=== PATIENT | female | born 1970 | race Caucasian/White ===

== ENCOUNTER 2020-12-15 14:50 | Inpatient (IN) | payer OTHER, SELFPAY ==
[2020-12-15] VITALS (13 sets, daily range): BP systolic 98–117; BP diastolic 54–72; PULSE 60–76; RESP 13–24; TEMP 36.3–36.8; O2SAT 95–99; BMI 34.2
--- NOTE | 2020-12-15 15:27 | ECG_ITS ---
[facility] Test Date: 2020-12-15 Pat Name: Malini Gomez Department: Room: Gender: Female Wire Roller: : 1970 Requested By: Nemesio Riojas Order Number: [id number] Donald MD: Rafaela Carnes M.D. Measurements Intervals [place] Rate: 72 P: 55 [place]: 156 QRS: 18 QRSD: 83 T: -17 QT: 373 QTc: 408 Interpretive Statements SINUS RHYTHM NONSPECIFIC T-WAVE ABNORMALITY No previous ECG available for comparison Electronically Signed On 12-15-2020 21:34:52 CDT by Rafaela Carnes M.D. [id number]
--- NOTE | 2020-12-15 15:27 | XR_ITS ---
WS: [id number] PORTABLE CHEST HISTORY: chest pain COMPARISON: None available. Lungs are clear and well expanded. No pleural effusion or pneumothorax. Cardiac size: Normal. Mediastinum/Aorta: Normal mediastinum. No osseous abnormality seen. XR/XR chest 1V portable [id number] IMPRESSION: Unremarkable portable chest.
[2020-12-15 15:41] LABS: Basophils % 0.3 %; Eosinophils # 0.1 10^3/uL (0.0-0.8); Eosinophils % 3.9 %; Hematocrit 35.8 % (37.0-47.0); Hemoglobin 11.2 g/dL (11.5-15.3); Lymphocytes % 27.9 %; Mean Corpuscular HGB Conc 31.3 g/dL (30.0-36.0); Mean Corpuscular Hemoglobin 25.1 pg (28.0-34.0); Mean Corpuscular Volume 80.3 fl (81-99); Mean Platelet Volume 12.5 fL (7.4-10.4); Monocytes # 0.3 10^3/uL (0.2-0.9); Monocytes % 7.6 %; Neutrophils # 2.14 10^3/uL (1.8-7.7); Neutrophils % 60.3 %; Nucleated Red Blood Cells % 0 %; Platelet Count 282 10^3/cmm (130-400); Red Blood Count 4.46 10^6/uL (4.1-5.3); Red Cell Distribution Width 17.3 % (12.1-15.1); White Blood Count 3.6 10^3/uL (4.0-10.0)
--- NOTE | 2020-12-15 15:52 | W.ED.CHESTPA ---
HPI - Chest Pain General: Chief Complaint: Chest Pain Stated Complaint: CHEST PAIN Time Seen by Provider: 12/15/20 15:25 History of Present Illness: HPI narrative: 50-year-old female presents emergency room with complaints of chest pain radiating to left and right arm with mild shortness of breath spinning coming and going throughout the day. Patient has no known history of coronary artery disease but does have a history of hyperlipidemia hypertension hypothyroidism. She also has a history of reflux. She has not noticed any thing that exacerbates or relieves her symptoms. MD complaint: chest pain Onset (ago): hour(s) Timing of current episode: episodic Prior episodes: Yes Onset: during rest Pain location: left chest Pain radiation: right arm and left arm Severity: mild Quality: tightness and aching Relieving factors: nothing Exacerbating factors: nothing Associated symptoms: Reports diaphoresis and dyspnea; Deny abdominal pain, fever(s), leg edema, nausea, palpitations, sense of impending doom, syncope or vomiting Treatment prior to arrival: aspirin Review of Systems Const: Reports: diaphoresis; Denies: fever(s) ENMT: Denies: throat pain, ear or mastoid pain, nasal discharge or nasal congestion Card: Denies: palpitations or syncope Resp: Reports: dyspnea GI: Denies: abdominal pain, nausea or vomiting : Denies: flank pain, difficulty voiding, dysuria, urinary frequency or urinary urgency Skin/Breast: Denies: rash or pruritus PFSH ED PFSH: Medical History (Updated 12/20/20 @ 10:22 by Nemesio Tobar DO) Chest pain H/O esophageal spasm Lupus (systemic lupus erythematosus) NSTEMI (non-ST elevated myocardial infarction) Smoker Tachycardia Troponin level elevated Vasculitis Social History (Updated 12/16/20 @ 04:38 by Lindsay Hodge MD) Smoking and tobacco status: current every day smoker Female Reproductive History: Date of last menstrual period: 12/12/20 Physical Exam Const: COMMON NORMALS: no acute distress GENERAL APPEARANCE: cooperative and comfortable ORIENTATION/CONSCIOUSNESS: Yes awake, Yes oriented to person, Yes oriented to place and Yes oriented to time Neck/C-Spine: COMMON NORMALS: no JVD Resp: COMMON NORMALS: normal respiratory effort, No retractions, No use of accessory muscles and clear to auscultation bilaterally AUSCULTATION: clear to auscultation bilaterally Cardio: COMMON NORMALS: no JVD, regular rate, regular rhythm and No murmurs present (Cardio) RATE: regular rate RHYTHM: regular rhythm GI: COMMON NORMALS: Soft to palpation and No hepatosplenomegaly present AUSCULTATION: Yes normoactive bowel sounds PALPATION: Yes Soft to palpation, No Tenderness to palpation present (GI), No Guarding due to palpation present (GI) and Yes No hepatosplenomegaly present Extremity: COMMON NORMALS: normal to inspection, capillary refill normal, no clubbing, cyanosis or edema, no calf tenderness and no pedal edema Neuro: SENSORIUM/ORIENTATION: Yes oriented to person, Yes oriented to place and Yes oriented to time Skin: COMMON NORMALS: no rashes or lesions noted GENERAL SKIN EXAM: no rashes or lesions noted Course Vital Signs: Vital signs: Vital Signs Temperature 97.8 F 12/19/20 11:29 Pulse Rate 64 12/19/20 16:00 Respiratory Rate 19 H 12/19/20 16:00 Blood Pressure 110/72 12/19/20 16:00 Pulse Oximetry 90 12/19/20 15:58 MDM - Chest Pain MDM Narrative: Medical decision making narrative: No acute ST changes noted on EKG EKGs labs and imaging reviewed. There is a significant jump in her troponin. We will go ahead and admit her discussed with hospitalist and with construction management instructor orders are written. Lab Data: Labs: Lab Results 12/15/20 12/15/20 12/15/20 14:41 14:41 14:41 WBC 3.6 10^3/uL L 10^ 3/uL (4.0-10.0) RBC 4.46 10^6/uL 10^6 /uL (4.1-5.3) Hgb 11.2 g/dL L g/dL (11.5-15.3) Hct 35.8 % L % (37.0-47.0) MCV 80.3 fl L fl (81-99) MCH 25.1 pg L pg (28.0-34.0) MCHC 31.3 g/dL g/dL (30.0-36.0) RDW 17.3 % H % (12.1-15.1) Plt Count 282 10^3/cmm 10^3 /cmm (130-400) MPV 12.5 fL H fL (7.4-10.4) Neut % (Auto) 60.3 % % Lymph % (Auto) 27.9 % % [place] % (Auto) 7.6 % % Eos % (Auto) 3.9 % % Baso % (Auto) 0.3 % % Neut # (Auto) 2.14 10^3/uL 10^3 /uL (1.8-7.7) Lymph # (Auto) 1.0 10^3/uL 10^3/ uL (0.8-4.8) [place] # (Auto) 0.3 10^3/uL 10^3/ uL (0.2-0.9) Eos # (Auto) 0.1 10^3/uL 10^3/ uL (0.0-0.8) Baso # (Auto) 0.0 10^3/uL 10^3/ uL (0.0-0.1) Nucleated RBC % (a uto) 0 % % Nucleated RBCs # 0.0 /100WBC /100W BC Sodium 139 mmol/L mmol/L (136-145) Potassium 4.1 mmol/L mmol/L (3.5-5.1) Chloride 105 mmol/L mmol/L (98-107) Carbon Dioxide 25 mmol/L mmol/L (22-29) Anion Gap 13.1 (5-19) BUN 8 mg/dL mg/dL (6-20) Creatinine 0.6 mg/dL mg/dL (0.5-0.9) GFR Calculation 105.4 mL/min mL/m in (90-130) Glucose 85 mg/dL mg/dL (65-115) Calculated Osmolal ity 286 mOsm/kg mOsm/ kg (285-295) Calcium 8.8 mg/dL mg/dL (8.5-10.5) Total Bilirubin 0.3 mg/dL mg/dL (0.15-1.2) AST 11 U/L U/L (0-32) ALT 6 U/L U/L (0-33) Alkaline Phosphata se 72 IU/L IU/L (35-105) Troponin T Baselin e 17 ng/L H ng/L (0-10) Troponin T 120 Min ernst Delta Troponin T Total Protein 7.6 g/dL g/dL (6.6-8.7) Albumin 3.8 g/dL g/dL (3.5-5.2) Globulin 3.8 g/dL g/dL (1.3-4.6) HCG, Qual 12/15/20 12/15/20 17:15 18:35 WBC RBC Hgb Hct MCV MCH MCHC RDW Plt Count MPV Neut % (Auto) Lymph % (Auto) [place] % (Auto) Eos % (Auto) Baso % (Auto) Neut # (Auto) Lymph # (Auto) [place] # (Auto) Eos # (Auto) Baso # (Auto) Nucleated RBC % (a uto) Nucleated RBCs # Sodium Potassium Chloride Carbon Dioxide Anion Gap BUN Creatinine GFR Calculation Glucose Calculated Osmolal ity Calcium Total Bilirubin AST ALT Alkaline Phosphata se Troponin T Baselin e Troponin T 120 Min ernst 62.59 ng/L H ng/L (0-10) Delta Troponin T 45.59 ABS# H* ABS # (0-10) Total Protein Albumin Globulin HCG, Qual Negative (Negative) Discharge Plan Discharge Patient Disposition: Admitted As Inpatient Admit Provider: Luz Pedraza Clinical Impression: Acute non-ST elevation myocardial infarction (NSTEMI), Lupus Condition: Stable Discharge Diet: Cardiac Discharge Activity: Limit activity as instructed and Return to work/school after cleared by PCP/Specialist Coding Level of Care Code ED Assistant Front Office Manager for [facility] Fwd Exam Detailed
[2020-12-15 16:03] LABS: Troponin(5th) Baseline 17 ng/L (0-10)
[2020-12-15 16:04] LABS: Alanine Aminotransferase 6 U/L (0-33); Albumin Level 3.8 g/dL (3.5-5.2); Alkaline Phosphatase 72 IU/L (35-105); Anion Gap 13.1 (5-19); Aspartate Amino Transferase 11 U/L (0-32); Blood Urea Nitrogen 8 mg/dL (6-20); Calcium 8.8 mg/dL (8.5-10.5); Carbon Dioxide 25 mmol/L (22-29); Chloride 105 mmol/L (98-107); Globulin 3.8 g/dL (1.3-4.6); Glomerular Filtration Rate 105.4 mL/min (90-130); Glucose 85 mg/dL (65-115); Osmolality Calculated 286 mOsm/kg (285-295); Potassium 4.1 mmol/L (3.5-5.1); Sodium 139 mmol/L (136-145); Total Bilirubin 0.3 mg/dL (0.15-1.2); Total Protein 7.6 g/dL (6.6-8.7)
--- NOTE | 2020-12-15 17:27 | ECG_ITS ---
[facility] Test Date: 2020-12-15 Pat Name: Malini Gomez Department: Room: Gender: Female Sales Account Director: : 1970 Requested By: Nemesio Riojas Order Number: [id number] Donald MD: Rafaela Carnes M.D. Measurements Intervals [place] Rate: 52 P: 51 [place]: 138 QRS: 17 QRSD: 88 T: -7 QT: 408 QTc: 383 Interpretive Statements SINUS BRADYCARDIA NONSPECIFIC T-WAVE ABNORMALITY Compared to ECG 12/15/2020 15:08:59 Sinus rhythm no longer present T-wave abnormality still present Electronically Signed On 12-15-2020 21:53:19 CDT by Rafaela Carnes M.D. [id number]
[2020-12-15 18:05] LABS: Troponin 5 2HR 62.59 ng/L (0-10)
[2020-12-15 18:06] LABS: Troponin 5 2HR Delta 45.59 ABS# (0-10)
--- NOTE | 2020-12-15 18:37 | P.CONIM_ITS ---
Providers/Reason For Consult Consulting Physician/Specialty*: Dr. Harltey, Cardiology Reason for Consult*: NSTEMI Requesting Physician: Dr. Tobar Attending Physician: Dr. Pedraza History of Present Illness History of Present Illness Malini Gomez is a 50 year old female with PMHx of lupus for last 19 years, h/o vasculitis, esophageal spasms, h/o tachycardia on propranolol. She is not on any medications for lupus and states she does not like to take medications. She has not been feeling well for last week or so. 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 She complains of retrosternal chest pain described as yeni horse spreading to entire chest with radiation to both arms. She also complains of associated diaphoresis and SOB that is somewhat new when compared to previous episodes of esophageal spasms. Chest pain lasting 10-15 minutes and waking her up at times at night. She is a poor historian. She gives family h/o Sjogren's syndrome in aunt, Good Pasture's disease in mother and rheumatoid arthritis in sister. She started smoking again 6 months back after quitting for 16 years. She denies any fever, chills, cough, dyspnea, leg swelling, orthopnea or PND. No prior echo or stress test. She was tested for COVID-19 last week that was negative. She has not been vaccinated but did get COVID-19 infection last year. She gets petechial lesions in bilateral lower extremities, her buttocks all the way up to her lower back and tends to use compression stockings to help with that. Review of Systems General: Reports: 10 or more systems reviewed and unremarkable except in HPI and below Const: Reports: diaphoresis; Denies: fever(s) ENMT: Denies: throat pain, nasal discharge or nasal congestion Card: Denies: palpitations or syncope Resp: Reports: dyspnea GI: Denies: abdominal pain, nausea, vomiting or hematochezia : Denies: flank pain, difficulty voiding, dysuria, urinary frequency, urinary urgency or hematuria Skin/Breast: Reports: other (intermittent hives); Denies: rash or pruritus Neuro: Denies: dizziness or vertigo Psych: Reports: anxiety Meds/Allergies Home Medications and Allergies Home Medications Medication Instructions Recorded Confirmed Last Taken Type propranolol 10 mg PO DAILY PRN 12/15/20 12/15/20 Unknown History Allergies Allergy/AdvReac Type Severity Reaction Status Date / Time No Known Allergies Allergy Verified 12/15/20 15:00 PFSH Acute PFSH: Medical History (Updated 12/16/20 @ 11:14 by Colin Rosas MD) H/O esophageal spasm Lupus (systemic lupus erythematosus) NSTEMI (non-ST elevated myocardial infarction) Smoker Tachycardia Vasculitis Social History (Updated 12/16/20 @ 04:38 by Lindsay Hodge MD) Smoking and tobacco status: current every day smoker Female Reproductive History: Date of last menstrual period: 12/12/20 Vitals/I&O/Wt Last Vital Signs Temp 98.2 F 12/15/20 14:52 Pulse 62 12/15/20 18:32 Resp 19 H 12/15/20 18:32 BP 117/71 12/15/20 18:32 Pulse Ox 99 12/15/20 18:32 Weight last 48 hrs Weight 225 lb Physical Exam Narrative: EXAM NARRATIVE: GENERAL: Obese woman sitting in bed in no acute distress HEENT:Pupils equal round reactive to light. No pallor or icterus. NECK: No JVD. No carotid bruit. CARDIOVASCULAR SYSTEM: S1-S2 regular. No murmur rubs or gallops. RESPIRATORY SYSTEM: Chest clear to auscultation. No wheezes rhonchi or rubs heard. No use of accessory muscles. ABDOMEN: Soft, nontender and nondistended. Normal bowel sounds present. EXTREMITIES: No cyanosis or clubbing. No edema. Bilateral lower extremity petechial lesion present (chronic) SYSTEMS PROJECT MANAGER: Patient is alert oriented ?3. No focal neurological deficits. SKIN: Normal turgor and temperature. PSYCH: Normal insight and judgment. A&P Assessment and plan (1) NSTEMI (non-ST elevated myocardial infarction): EKG showing T wave inversion in inferior leads and T wave flattening in lateral leads. -remains CP free at the moment. - Troponin T increased from 17 to 65. -received ASA, plavix 300 mg and lovenox 100 mg x 1 -plan for echo. -Risks and benefits were discussed with the patients. Possible complications were reviewed with the patient as well. Plan is to proceed for the procedure at the earliest. Case was discussed with DR. Ashby. Status: Acute (2) Lupus (systemic lupus erythematosus): Status: Acute (3) Vasculitis: Status: Acute (4) Smoker: Status: Acute Additional A&P Information Microcytic anemia H/O tachycardia : On propranolol at home Thank you for allowing me to participate in patient's care. Please feel free to call with questions or concerns. Consult Attestations Medical Necessity Statement: Needs hospital stay for NSTEMI Time Spent in Patient Care: Greater than 35 minutes Coding Level of Care Code Acute Turn Machine Operator for [facility] Fwd Diagnoses NSTEMI (non-ST elevated myocardial infarction) I21.4 Lupus (systemic lupus erythematosus) M32.9 Vasculitis I77.6 Smoker F17.200
[2020-12-15] MEDS: clopidogrel 300 mg Tablet PO (18:41)
[2020-12-15] MEDS: enoxaparin 100 mg/mL Syringe SUBCUT (18:41)
[2020-12-15 20:22] LABS: HCG Qualitative Urine. Negative (Negative)
[2020-12-15] MEDS: sodium chloride 0.9% 1,000 ML 50 ML IV (21:00)
[2020-12-15 21:14] LABS: Troponin 5 6HR 56.41 ng/L (0-10)
--- NOTE | 2020-12-15 21:27 | ECG_ITS ---
[facility] Test Date: 2020-12-15 Pat Name: Malini Gomez Department: Room: 106 Gender: Female Purse Maker: : 1970 Requested By: Nemesio Riojas Order Number: [id number] Donald MD: Denise Hartley M.D. Measurements Intervals [place] Rate: 60 P: 58 [place]: 163 QRS: 25 QRSD: 93 T: 63 QT: 384 QTc: 384 Interpretive Statements SINUS RHYTHM WITH SINUS ARRHYTHMIA NONSPECIFIC T-WAVE ABNORMALITY Compared to ECG 12/15/2020 17:48:08 Sinus bradycardia no longer present T-wave abnormality still present Electronically Signed On 12-17-2020 7:07:25 CDT by Denise Hartley M.D. [id number]
[2020-12-15 21:28] LABS: SARS Covid-2 Antigen Negative (Negative)
[2020-12-15 21:34] LABS: Troponin 5 6HR Delta 39.41 ng/L (0-12)
--- NOTE | 2020-12-15 23:23 | PM.HP ---
Providers/Chief Complaint Admitting Physician: Luz Pedraza MD Chief Complaint: CHEST PAIN History of Present Illness Malini Gomez is a 50 year old female With past medical history significant for lupus, tobacco abuse was presented to the hospital with substernal chest pain. Patient stated that she had a history of esophageal spasms however this time she became profoundly diaphoretic. Noted have mild shortness of breath. No fever, chills, nausea vomiting.Laboratory workup showed a WBC of 3.6, hemoglobin of 11.2, hematocrit 35.8 and platelet count of 282. Sodium 139, potassium 4.1, chloride 105, bicarb 25, BUN 8 and creatinine of 0.6. Initial delta troponin T of 45? in repeat of 39 at 6hr. Rapid COVID 19 ag negative. Chest X-ray was unremarkable Cardiology was consulted. Patient was given aspirin, Plavix and full-dose Lovenox in emergency room. She had refused statin. Review of Systems General: Reports: 10 or more systems reviewed and unremarkable except in HPI and below Medications/Allergies Home Medications Medication Instructions Recorded Confirmed Last Taken Type propranolol 10 mg PO DAILY PRN 12/15/20 12/15/20 Unknown History Allergies Allergy/AdvReac Type Severity Reaction Status Date / Time No Known Allergies Allergy Verified 12/15/20 15:00 PFSH Acute PFSH: Medical History (Updated 12/15/20 @ 19:59 by Denise Hartley MD) H/O esophageal spasm Lupus (systemic lupus erythematosus) NSTEMI (non-ST elevated myocardial infarction) Smoker Tachycardia Vasculitis Social History (Updated 12/16/20 @ 04:38 by Lindsay Hodge MD) Smoking and tobacco status: current every day smoker Female Reproductive History: Date of last menstrual period: 12/15/20 Vitals/I&O/Wt Last Vital Signs Temp 97.3 F L 12/15/20 21:37 Pulse 65 12/15/20 23:57 Resp 15 12/15/20 23:57 BP 98/56 12/15/20 23:57 Pulse Ox 97 12/15/20 23:57 Weight last 48 hrs Weight 102.058 kg Physical Exam Narrative: EXAM NARRATIVE: General -alert awake and oriented HEENT-grossly unremarkable CVS -normal sinus rhythm Chest-nonlabored respiration Extremities- mild bilateral lower extremity edema Data : 12/15/20 14:41 12/15/20 14:41 A&P Assessment and plan (1) NSTEMI (non-ST elevated myocardial infarction): Cardiology on consult Aspirin / Plavix Refused statin Check lipid panel in am ECHO NPO Plan for cardiac cath in am Further plan per cardiology Status: Acute Attestations Medical Necessity Statement*: Anticipate over 2 midnight stay in hospital. Time Spent in Patient Care: Greater than 35 minutes Coding Level of Care Code Acute Campus President for [facility] Diagnoses NSTEMI (non-ST elevated myocardial infarction) I21.4
[2020-12-16] VITALS (69 sets, daily range): BP systolic 71–122; BP diastolic 38–69; PULSE 52–90; RESP 10–29; TEMP 36.7–37.1; O2SAT 90–99
--- NOTE | 2020-12-16 03:17 | ECG_ITS ---
[facility] Test Date: 2020-12-16 Pat Name: Malini Gomez Department: Room: 106 Gender: Female Packing Attendant: : 1970 Requested By: Lindsay Hodge Order Number: [id number] Bennett MD: Denise Hartley M.D. Measurements Intervals [place] Rate: 57 P: 55 [place]: 151 QRS: 10 QRSD: 93 T: -32 QT: 424 QTc: 414 Interpretive Statements SINUS BRADYCARDIA NONSPECIFIC T-WAVE ABNORMALITY Compared to ECG 12/15/2020 22:38:46 Sinus rhythm no longer present Sinus arrhythmia no longer present T-wave abnormality still present Electronically Signed On 12-17-2020 7:03:29 CDT by Denise Hartley M.D. [id number]
--- NOTE | 2020-12-16 03:45 | PC.NURSE ---
patient had spell of chest pain, EKG obtained and Dr. Hartley notified of event, CP resolved and patient remians stable VS WNL.
[2020-12-16 05:14] LABS: Basophils % 0.3 %; Eosinophils # 0.1 10^3/uL (0.0-0.8); Eosinophils % 3.7 %; Hemoglobin 10.2 g/dL (11.5-15.3); Lymphocytes % 25.9 %; Mean Corpuscular HGB Conc 30.9 g/dL (30.0-36.0); Mean Corpuscular Hemoglobin 25.4 pg (28.0-34.0); Mean Corpuscular Volume 82.1 fl (81-99); Mean Platelet Volume 11.7 fL (7.4-10.4); Monocytes # 0.2 10^3/uL (0.2-0.9); Monocytes % 6.3 %; Neutrophils # 2.41 10^3/uL (1.8-7.7); Neutrophils % 63.5 %; Nucleated Red Blood Cells % 0 %; Platelet Count 231 10^3/cmm (130-400); Red Blood Count 4.02 10^6/uL (4.1-5.3); Red Cell Distribution Width 17.3 % (12.1-15.1); White Blood Count 3.8 10^3/uL (4.0-10.0)
[2020-12-16 05:38] LABS: Anion Gap 13.8 (5-19); Blood Urea Nitrogen 8 mg/dL (6-20); Calcium 8.3 mg/dL (8.5-10.5); Carbon Dioxide 23 mmol/L (22-29); Chloride 106 mmol/L (98-107); Glomerular Filtration Rate 88.2 mL/min (90-130); Glucose 77 mg/dL (65-115); Osmolality Calculated 285 mOsm/kg (285-295); Potassium 3.8 mmol/L (3.5-5.1); Sodium 139 mmol/L (136-145)
[2020-12-16] MEDS: diphenhydrAMINE 50 mg Capsule PO (05:47)
--- NOTE | 2020-12-16 05:51 | PC.NURSE ---
patient to cardiac cath at this time via wc
--- NOTE | 2020-12-16 06:00 | XACV_ITS ---
Exam Room: [facility] Ht: 173 cm Wt: 102 kg BSA: 2.25 m2 Gender: Female : 1970 Any Known Allergies: No known allergies Exam Priority: Routine Indication(s): - NSTEMI Procedure(s): Procedure Description: Diagnostic procedure Procedure Description: Left Heart Catheterization Procedure Description: Left ventriculography Procedure Description: Coronary Angiography Diagnostic Cath Status: Urgent Diagnostic Findings * No disease noted in the Left Main, Left Anterior Descending, Right, or Circumflex coronary arteries. * Coronary angiography shows right dominance. Conclusions 1. No disease noted in the Left Main, Left Anterior Descending, Right, or Circumflex coronary arteries. 2. Normal left ventricular systolic function. Ejection fraction of 60%. 3. Indication for angiogram: Recurrent chest pain with ST elevations in the inferior lead relieved with nitroglycerin immediately. 4. 1-Normal left main2-Normal LAD3-Normal left circumflex4-No significant stenosis or dissection noted in the RCA however there appeared to be sluggish flow in mid RCA region. Since there was no limitation of flow and there is no obvious dissection we thought to treat it medically and also because of the fact IVUS is not available to us at this point due to technical reasons, we may will bring patient and repeat IVUS in case she continues to have symptoms despite of optimization of medicine 5. . Recommendations * Continue current medical management and risk factor modification. Diagnostic RX Recommendation: medical therapy and/or counseling Ventriculography Ejection Fraction: 60.0 % Pressures Phase:Rest AO : 107 / 69 ( 86 ) @ 6:03:00 AM 107 / 58 ( 85 ) @ 6:03:00 AM LV : 106 @ 6:02:00 AM 114 / -4 / 19 @ 6:03:00 AM 121 / -6 / 18 @ 6:03:00 AM Valves Phase:DefaultPhase AV : 14.0 @ 2:33:00 PM AV Mean Gradient: 7.0 @ 2:33:00 PM Clinical Evaluation EBL: 5mL-10mL Procedural Details Procedure Consent Obtained. Admit Source: In Patient. Current Diagnosis : NSTEMI. Pre-Procedure Time Out. Identified patient by full name and date of as verbalized by the patient/guarantor. Does the consent match the physician's order: Yes. Accurate & Complete Informed Consent: Yes. Inpatient/Outpatient History & Physical on Chart: Yes. If H&P is completed, is and addenduem needed: No; If yes, is the addendum complete: N/A. Visualize and Verify Site with Patient/Guarantor: N/A. Relevant Radiology Images available: Yes. Pre-op teaching completed and patient verbalized understanding. The risks, benefits, and alternatives of sedation and/or procedure were discussed by physician. The patient agrees to continue. Procedure started. [facility] Clinical Fraility Score: 3: Managing Well. Area Loss Prevention Manager Indications: ACS > 24 hours. Chest Pain Symptom Assessment: Typical Angina Symptoms. Correct patient, site and procedure confirmed by cath team. Current diagnosis: NSTEMI. PERRLA. Strong, equal hand plasterer tender bilaterally. Lungs clear x 5 lobes. IV Site on Arrival: 18 gauge in the left anticubital. IV Fluids: 0.9% NaCl at KVO. 500 mL infused prior to pharmacy laboratory technician. Pre Procedural Pulses: right radial was 3+. Pre Procedural Pulses: bilateral posterior tibial was Doppled. Pre Procedural Pulses: bilateral dorsalis pedis was Doppled. Oxygen started at 3liters/min via nasal canula. right radial was prepped with chloroprep then draped in the usual sterile fashion. Physician notified. Baseline sample Acquired. HR: 63 BPM. Patient's family unavailable. Equipment: 5F - Radial. Cardiac Cath Pack. ACIST Manifold Kit Model BT 2000. Heparinized Saline (2 units/mL), 1000 mL bag. Equipment: 5F - Femoral. Physician arrived. Physician scrubbed in. Immediate Pre-Procedure Time Out. Correct Patient: Yes; Correct Procedure: Yes; Correct Site: Yes; Correct Patient Position: Yes; Correct Supplies: Yes; Dried Flammable Prep: Yes; Blood Products Available: N/A;. Lidocaine 1% infiltrated to the right radial. Arterial access obtained. A 5 kuwaiti TIG catheter in over exchange wire. Catheter seated in the LCS. Multiple views taken of left coronary artery. Catheter redirected to the RCA. Multiple views taken of right coronary artery. Catheter removed over the exchange wire. A CRD 5F 145 Angled Pig Diagnostic Catheter was advanced over the wire and used for Ventriculography. EDP Sample taken: LV 106/7,15; HR: 79 BPM; SpO2: 100%. LV gram performed in GUTIERREZ @ 10 mL/second for a total of 30 mL. EDP Sample taken: LV 114/-5,19; HR: 59 BPM; SpO2: 100%. Pullback taken: LV 121/-7,18; AO 107/69(86); Mean: 7mmHg, Peak to Peak: 14mmHg, SEP: 20sec/min; HR: 75 BPM; SpO2: 99%. Catheter removed over the exchange wire. Physician review of films. Physician scrubbed out. A TR Band was successful obtaining hemostatsis at the Right Radial artery insertion site. TR band placed. Hemostasis obtained. Post Procedure: Pulses reassessed and unchanged. PERRLA. Strong, equal hand plasterer tender bilaterally. No VTE prophylaxis required. Medication's Wasted: Lidocaine 1% = 18 ml. Total IV fluids: 37 mL. Medication's Wasted: Heparin = 1000 units. Medication's Wasted: Nitro = 49.8 mg. Medication's Wasted: Fentanyl = 50 mcg. Fluoro: 4:05. Contrast type used: Omnipaque 300 mg/mL, 150 mL bottle. [id number]. Post-op diagnosis: Normal Coronaries; Endothelial dysfunction. Complications: None. Estimated blood loss: 5mL-10mL. Procedure completed. Patient transferred by wheelchair to 1st floor. Vital chart was stopped. Access Site Site: Right Radial artery Sheath Size: 5 Fr Hemostasis Method: TR Band Hemostasis Success: Successful Procedure Medications Start: 6:41 AM Stop: 6:41 AM Medication: Versed 1 mg and Fentanyl 25 mcg Amount: 1 Route: I.V. Start: 6:46 AM Stop: 6:46 AM Medication: Versed 1 mg and Fentanyl 25 mcg Amount: 1 Route: I.V. Start: 6:48 AM Stop: 6:48 AM Medication: Nitrogylcerin Amount: 200 mcg Route: I.A. Start: 6:50 AM Stop: 6:50 AM Medication: Heparin Amount: 5000 units Route: I.V. I, the attending physician, have reviewed and verified all procedure medications. Yes, all medications given per verbal order History/Risk Factors Hypertension: No Dyslipidemia: No Peripheral Arterial Disease (PAD): No Myocardial Infarction (SD): No Obesity: Yes Renal Disease: No Tobacco Use: Current/Recent(w/in 1 year) Prior Interventions PCI: No CABG: No Valve Surgery: No Report Signatures Finalized by Smitha Ashby MD on 01/01/2021 04:54 PM
--- NOTE | 2020-12-16 06:31 | W.PM.OPSUD ---
Surgery/Procedure H&P Update DATE OF PROCEDURE: December 16, 2020 DATE H&P PERFORMED: 12/15/20 H&P UPDATE INFORMATION: I have reviewed H&P completed within last 30 days, I have examined patient prior to procedure and No changes to prior documentation PREOP DIAGNOSIS: Acute coronary syndrome PATIENT REASSESSED PRIOR TO SEDATION, WITH NO CHANGE NOTED: Yes PHYSICAL EXAM: alert, oriented x 3, clear to auscultation bilaterally and regular rate & rhythm AIRWAY EVAL/ANESTHESIA PLAN: ASA II, Risks, benefits & alternatives of sedation and/or procedure discussed and Patient agrees to continue as planned ADDITIONAL INFORMATION: Patient has been explained in detail all risk benefit and alternative for the procedure. She understand the risk for stroke major minor bleed transfusion contrast-induced nephropathy urgent emergent bypass surgery vascular injury infection hematoma . She is a candidate for DAPT. She would like to proceed with it.
--- NOTE | 2020-12-16 07:51 | PC.NURSE ---
Pt arrived from [facility] at approximately 0720. Pt has TR Band to right wrist. Radial pulses palpable and full. No hematoma, swelling, or bleeding noted. Pt had no c/o pain or discomfort at the present time. Call light in reach. Will continue to monitor.
[2020-12-16] MEDS: aspirin 81 mg Chew Tablet PO (08:42)
[2020-12-16] MEDS: clopidogrel 75 mg Tablet PO (08:42)
[2020-12-16] MEDS: pantoprazole DR 40 mg Tablet PO (08:42)
[2020-12-16 10:52] LABS: C Reactive Protein 5.4 mg/L (0.0-4.9)
--- NOTE | 2020-12-16 11:00 | P.PN_ITS ---
Subjective Subjective: Interval history: She states that she is doing better than she was. Discussed results of the coronary angiogram with the brim greaser operator. Had a brief episode of chest discomfort again which she describes fortunato to a charley horse but in her chest squeezing tightly, episode was brief, and there was no time for her to get nitroglycerin before it resolved spontaneously. Report is that her T waves were noted to be inverted on telemetry by RN during the episode. Heart rates have been on the slow side 50s-60s. States this has been having at home as well, although sometimes heart rates would be going down into the 30s-40s. States she has been cautious with her propranolol. She has had to take Aleve at times, but is aware that it may worsen her GERD. Reports that at night waking up from the pain she feels that sitting up and leaning forward helps her symptoms. 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 She states that she had seen a warehouse analyst 19 years ago for lupus and was transiently taking Plaquenil, however, after some improvement he was okay with her stopping the medication. She did not follow-up with him as she felt he was not attentive enough and has not seen another warehouse analyst since then. She states she also has been having recurrent problems with esophageal spasm in the past which is what her symptoms were diagnosed as for which she has been taking GI cocktail with viscous lidocaine, although states her primary provider has declined to further prescribe this for her. She is looking to try to set up care with Dr. Craven or possibly gastroenterology specialist. Her daughter states she has been going through menopause recently as well. Discussed with her again regarding results of coronary angiography, as well as work-up so far. Discussed concerns for possibility of additionally she will do of chest pain including possible vasospasm, with lupus, troponin elevation, pos sibility of pericarditis or myopericarditis, also in the presence of vasculitis, as well recently due to stress there had been concern also of possible Takotsubo cardiomyopathy. Echocardiogram had been requested and she awaits to have the study done. Discussed with her she would benefit from follow-up with rheumatology. Vitals/I&O/Wt Last Vital Signs Temp 98.1 F 12/16/20 07:57 Pulse 61 12/16/20 07:57 Resp 18 12/16/20 07:57 BP 98/54 12/16/20 07:57 Pulse Ox 99 12/16/20 07:30 12/15/20 12/16/20 12/16/20 22:59 06:59 14:59 Intake Total 0 / 0 Balance 0 / 0 Weight last 48 hrs Weight 105.772 kg Weight 102.058 kg Physical Exam Narrative: EXAM NARRATIVE: Accompanied by daughter Const: COMMON NORMALS: no acute distress and patient oriented x3 HENMT: COMMON NORMALS: oropharynx normal Neck/C-Spine: COMMON NORMALS: no JVD Resp: COMMON NORMALS: normal respiratory effort and clear to auscultation bilaterally AUSCULTATION: clear to auscultation bilaterally Cardio: COMMON NORMALS: no JVD, regular rhythm, S1 normal heart sound present, S2 normal heart sound present and No murmurs present (Cardio) RATE: bradycardic RHYTHM: regular rhythm HEART SOUNDS: S1 normal heart sound present and S2 normal heart sound present GI: COMMON NORMALS: Normal to inspection, nondistended, normoactive bowel sounds present, Soft to palpation and non-tender PALPATION: Yes Soft to palpation Extremity: COMMON NORMALS: no joint enlargement and no pedal edema Neuro: COMMON NORMALS: patient oriented x3 and moves all extremities Skin: GENERAL SKIN EXAM: petechiae (Scattered petechial lesions of lower extremities including upper thighs) Data : 12/16/20 04:18 12/16/20 04:18 A&P Assessment and plan (1) Chest pain: Short episode again this morning, not long enough to get to nitroglycerin and time, resolve spontaneously. Reported per RN who had seen T wave inversions during episode. She does report episodes waking her up at night, and does feel sitting up and forward was helping with symptoms. Possibly some endothelial dysfunction noted on coronary angiography, although no hemodynamically significant occlusions noted. Discussed with her possibility of other children's including vasospasm, consideration also given to Takotsubo cardiomyopathy, and discussed with her in the setting of lupus/chronic vasculitis/petechia of lower extremities additional investigation is pending with consideration of possibility of pericarditis, myopericarditis, although EKG not suggestive of pericarditis changes. Lupus vasculitis is a consideration. Denies any recent flulike illness. Has been having some chills with the chest discomfort episodes. TTE has been ordered. Pending. Will request also CRP, ESR, complement levels. Would like her to follow-up with rheumatology. Appreciate cardiology assessment and recommendations. Continue telemetry monitoring. Status: Acute (2) Troponin level elevated: Status: Acute (3) Petechiae: Status: Acute (4) Lupus: Status: Acute (5) Leukopenia: Status: Acute Additional A&P Information History of recurrent esophageal spasm: Reports diagnosis of history of recurrent spherical spasm. Consider barium swallow after discharge. GERD Recent psychosocial stressors Perimenopausal symptoms Attestations Medical Necessity Statement*: Continue admission for assessment management of chest pain episodes, troponin elevation in a lady with underlying autoimmune disease. Coding Level of Care Code Acute Parking Lot Attendant for anirudh Medranod Diagnoses Chest pain R07.9 Troponin level elevated R77.8 Petechiae R23.3 Lupus M32.9 Leukopenia D72.819
[2020-12-16 11:07] LABS: Complement C3 96 mg/dL (90-180)
--- NOTE | 2020-12-16 11:12 | PC.CHAP ---
Pastoral Care Encounter/Spiritual Assessment Type of Contact [] Declined public works manager visit [] Patient/Family/Request visit [] Outpatient visit [] Follow-up visit [] Physician referral [] Code/Alert [x] Routine visit [] Staff referral [] Actively dying [] Patient sleeping [] Family support [] [] Out of room [] Palliative care [] [x] Receiving care in room [] Pre-surgical visit [] Trauma [] Long length of stay [] ICU visit [] Other: Relational/Emotional Strength [x] Patient feels connected with others/family/visitors/staff [] Distress [] Loneliness/isolation [] Abandonment Spirituality of Patient [x] Person of Monica [] Attends Confucianism of their Monica [x] Believes in Prayer [] Reads Bible or Confucianism materials [] There are Spiritual issues to be addressed Applied Research Director Interventions [x] Prayer [x] Active listening [x] Non-anxious presence [x] Spiritual/emotional support [] Crisis/trauma care [x] Spiritual counseling [] Bereavement support [] Provided bereavement packet [] Provided Bible/devotional materials [] Provided toy/stuffed animal, coloring book to patient or family member [] Provided Communion [] Anointing/[place] [] Salvation [x] Completed spiritual assessment [] Other: Impact on Illness or Injury [] Angry [] Fearful [] Anxious [] Often cries [] Exhaustion [] Unable to work [] Unable to attend yarsanism [] Unable to walk/stand [] Unable to read [] Unable to drive [] Unable to eat/drink [] Unable to sleep [] Unable to be with family [] Patient intubated [] Other: Summary feeling good and is going home today Time spent with patient 10 mins
[2020-12-16] MEDS: acetaminophen 325 mg Tablet 650 MG PO (11:23)
--- NOTE | 2020-12-16 14:00 | PC.NURSE ---
Pts TR Band removed no hematoma, swelling or bleeding noted. Pt tolerated well. Pt had no c/o pain or discomfort at the present time. No needs voiced.
[2020-12-16] MEDS: ketorolac 30 mg/mL INJ 15 MG IVP (16:46)
[2020-12-16] MEDS: sodium chloride 0.9% 1,000 ML 100 ML IV (16:48)
[2020-12-16] MEDS: alum-mag-hydroxide-sime 30 mL UDC PO (16:52)
[2020-12-16 17:28] LABS: Thyroid Stimulating Hormone 8.04 uIU/mL (0.27-4.20)
--- NOTE | 2020-12-16 18:00 | PM.PN ---
Subjective Subjective: Interval history: Patient underwent coronary angiogram this morning by Dr. Ashby with normal coronaries. I was called to evaluate the patient bedside d/t episode of chest pain. Patient has been having on and off chest pain 3-4 over 10 in intensity that was described as twitches since angiogram. Minor EKG changes more so in T wave was noted by nursing staff. While I was evaluating the patient, patient developed retrosternal chest discomfort with diaphoresis and flushed feeling. There was marked ST segment elevation with frequent PVCs. Patient had received a dose of Maalox just before this episode. Sublingual nitroglycerin was administered in patient's chest discomfort along with EKG changes resolved within a matter of minutes. Medications: Reviewed: Yes Vitals/I&O/Wt Last Vital Signs Temp 98.7 F 12/16/20 11:13 Pulse 76 12/16/20 17:00 Resp 16 12/16/20 17:00 BP 101/52 12/16/20 17:00 Pulse Ox 97 12/16/20 11:13 12/16/20 12/16/20 12/16/20 06:59 14:59 22:59 Intake Total 0 / 0 Balance 0 / 0 Weight last 48 hrs Weight 233 lb 3 oz Weight 225 lb Physical Exam Narrative: EXAM NARRATIVE: GENERAL: Obese woman sitting in bed in no acute distress HEENT:Pupils equal round reactive to light. No pallor or icterus. NECK: No JVD. No carotid bruit. CARDIOVASCULAR SYSTEM: S1-S2 regular. No murmur rubs or gallops. RESPIRATORY SYSTEM: Chest clear to auscultation. No wheezes rhonchi or rubs heard. No use of accessory muscles. ABDOMEN: Soft, nontender and nondistended. Normal bowel sounds present. EXTREMITIES: No cyanosis or clubbing. No edema. 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 No focal neurological deficits. SKIN: Normal turgor and temperature. PSYCH: Normal insight and judgment. Data : 12/16/20 04:18 12/16/20 04:18 A&P Assessment and plan (1) NSTEMI (non-ST elevated myocardial infarction): EKG showing T wave inversion in inferior leads and T wave flattening in lateral leads. -remains CP free at the moment. - Troponin T increased from 17 to 65. -received ASA, plavix 300 mg and lovenox 100 mg x 1 -f/u on echo. -Normal coronaries on C this morning. -MINOCA d/t coronary vasospasm Status: Acute (2) Vasospastic angina: Blood pressure has been soft however episode of angina was nitrate responsive. -Patient's underlying lupus and vasculitis very likely has a role to play. -Blood pressure has been soft may consider low-dose Cardizem if blood pressure improves. -In the interim, I will start her on isodril 2.5 mg twice a day. continue low dose statin -will add Ranexa well. -NTG SL PRN while in hospital and on discharge. -Patient was advised to quit smoking. D/C propranolol Status: Acute (3) Vasculitis: Status: Acute (4) Lupus (systemic lupus erythematosus): Status: Acute (5) Smoker: Status: Acute Additional A&P Information Microcytic anemia H/O tachycardia : On propranolol at home Thank you for allowing me to participate in patient's care. Please feel free to call with questions or concerns. Attestations Medical Necessity Statement*: needs hospital stay for management of MINOCA and vasospastic angina Time Spent in Patient Care: 16 - 35 minutes (>than 50% of time spent in counselling and/or direct pt care on unit). Critical Care Time: The high probability of a clinically significant, sudden or life threatening deterioration of the patient's [cardiovascular] system(s) required my full and direct attention, intervention and personal management. The critical care time is as shown. This time is in addition to time spent performing any reported procedures but includes the following: [x] Data and vital sign review and interpretation [x] Patient assessment, examination and intervention [x] Documentation [x] Medication orders and management Critical Care Time (min): 20 Coding Level of Care Code Acute Service Writer for g Fwd Diagnoses NSTEMI (non-ST elevated myocardial infarction) I21.4 Vasospastic angina I20.1 Vasculitis I77.6 Lupus (systemic lupus erythematosus) M32.9 Smoker F17.200
[2020-12-16 18:05] LABS: Cortisol Random 10.85 ug/dL (2.47-19.5)
[2020-12-16] MEDS: ranolazine (12HR) 500 mg Tablet PO (18:29)
--- NOTE | 2020-12-16 20:12 | USCV_ITS ---
Malini Gomez Age: 50 Gender: F : 1970 Exam Date: 12/16/2020 16:09 Ordering Phys: Denise Hartley MD ([email or web address]) Technologist: Christiana Banerjee Exam Location: [facility] [place] Indication: NSTEMI BP: 96 / 49 HR: 53 Rhythm: Sinus Technical Quality: Adequate MEASUREMENTS (Male / Female) Normal Values 2D ECHO LV Diastolic Diameter PLAX 5.3 cm 4.2 - 5.9 / 3.9 - 5.3 cm LV Systolic Diameter PLAX 3.9 cm IVS Diastolic Thickness 1.0 cm 0.6 - 1.0 / 0.6 - 0.9 cm IVS Systolic Thickness 1.1 cm LVPW Diastolic Thickness 1.4 cm 0.6 - 1.0 / 0.6 - 0.9 cm LVPW Systolic Thickness 1.6 cm LVOT Diameter 2.0 cm LV Ejection Fraction 2D Teich 51.4 % LV Ejection Fraction MOD 2C 51.3 % LV Ejection Fraction 2C AL 51.9 % LA Diameter 3.6 cm LA Width 3.8 cm LA Height 4.6 cm RA Width 3.0 cm RA Height 4.0 cm DOPPLER AV Peak Velocity 150.0 cm/s LVOT Peak Velocity 85.0 cm/s AV Area Cont Eq vti 1.8 cm squared AV Area Cont Eq pk 1.8 cm squared MV Peak Velocity 134.0 cm/s MV Area PHT 3.9 cm squared Mitral E to A Ratio 1.7 MV E' Velocity 51.0 cm/s Mitral E to MV E' Ratio 8.0 Mitral E to LV E' Lateral Ratio 9.3 Mitral E to LV E' Septal Ratio 7.1 TR Peak Velocity 197.5 cm/s TR Peak Gradient 15.6 mmHg Right Atrial Pressure 3.0 mmHg Pulmonary Artery Systolic Pressu 18.6 mmHg PV Peak Velocity 62.0 cm/s RV Acceleration Time 0.2 s RV Ejection Time 0.4 s RV AcT/ET 0.4 FINDINGS Left Ventricle Normal left ventricular size, systolic function and wall thickness. Left ventricular ejection fraction is estimated at 55 %. There is mild hypokinesis of septal and basal to mid inferior hunter. Normal diastolic function. Right Ventricle Normal right ventricular size and systolic function. Right ventricular systolic pressure 27 mmHg. Right Atrium Normal right atrial size. Right atrial pressure estimated at 3 mmHg. Left Atrium Normal left atrial size. Mitral Valve Structurally normal mitral valve. No mitral valve stenosis. Mild mitral valve regurgitation. Aortic Valve Aortic valve not well visualized. No aortic valve stenosis. No aortic valve regurgitation. Tricuspid Valve Structurally normal tricuspid valve. No tricuspid valve stenosis. Mild tricuspid valve regurgitation. Pulmonic Valve Pulmonic valve not well visualized. Trace pulmonary valve regurgitation. Pericardium No pericardial effusion. Aorta Normal-sized aortic root. Normal-sized inferior vena cava with normal respiratory variation. CONCLUSIONS 1. Normal left ventricular size, systolic function and wall thickness. Left ventricular ejection fraction is estimated at 55 %. There is mild hypokinesis of septal and basal to mid inferior hunter. Normal diastolic function. 2. Normal right ventricular size and systolic function. 3. Pulmonary artery pressure estimated at 27 mmHg. 4. Mild mitral and tricuspid valve regurgitation. 5. ST-T wave changes along with bradycardia noted during the study. 6. No prior studies available for comparison. Denise Hartley MD (Electronically Signed) Final Date: 16 December 2020 20:01 S
[2020-12-16] MEDS: isosorbide dinitrate 20 mg Tablet 2.5 MG PO (20:35)
[2020-12-16] MEDS: atorvastatin 40 mg Tablet 10 MG PO (20:36)
[2020-12-16 20:54] LABS: Free T4 Free Thyroxine 1.01 ng/dL (0.82-1.77)
--- NOTE | 2020-12-16 23:32 | PC.NURSE ---
Rapid Response This nurse responded to Rapid Response, Nurse informed this nurse patient had 4th run of V tach but this time had ST elevation and became symptomatic, upon entering room this nurse found patient to be a little lethargic but still AO, 20 gauge started to L hand, Dr. Hodge at bedside, gave v.o. to transfer patinet to ICU, start Heparin drip and Nitro drip at 5 mcg upon transfer, if Nitro drip not tolerated switch to PRN SL Nitro, at this time rhythm changed to base line sinus lindsey cardia. patinet in ICU at this time, daughter at bedside, Dr. Hodge approved Daughter staying in unit
[2020-12-17] VITALS (42 sets, daily range): BP systolic 81–168; BP diastolic 48–101; PULSE 45–77; RESP 12–25; TEMP 36.6–36.8; O2SAT 93–99
[2020-12-17] MEDS: nitroglycerin drip 50 MG/250 ML PREMIX IV (00:07)
[2020-12-17 00:14] LABS: Blood Urea Nitrogen 6 mg/dL (6-20); Calcium 8.1 mg/dL (8.5-10.5); Carbon Dioxide 24 mmol/L (22-29); Chloride 109 mmol/L (98-107); Creatinine Clr Calc Pharmacy 121.0532; Glomerular Filtration Rate 88.2 mL/min (90-130); Glucose 85 mg/dL (65-115); Magnesium 2.1 mg/dL (1.7-2.3); Osmolality Calculated 291 mOsm/kg (285-295); Sodium 142 mmol/L (136-145)
[2020-12-17 00:15] LABS: Troponin T (5th) Once 32 ng/L (0-10)
[2020-12-17] MEDS: acetaminophen 325 mg Tablet 650 MG PO ×2 (00:24→16:51)
[2020-12-17] MEDS: heparin drip 25,000 UNIT/500 ML PREMIX 61.35 UNIT IV ×2 (01:06→07:12)
[2020-12-17] MEDS: sodium chloride 0.9% 1,000 ML 100 ML IV ×2 (01:17→12:42)
--- NOTE | 2020-12-17 02:52 | PC.NURSE ---
This nurse noticed ST elevation on monitor, EKG showed Marked ST Elevation consider Inferior injury acute FL, Dr. Hodge contacted, while on phone, rhythm returned to sinus lindsey, no n.o. at this time, keep HCP updated
--- NOTE | 2020-12-17 05:55 | PC.NURSE ---
approximately 0530 ST elevation noted on monitor, patient reported mild chest pain, VS WNL, after 2 to 3 minutes back to sinus lindsey, per Dr. Hodge from previous notification HCP not notified since rhythm converted quickly and patient remained stable
--- NOTE | 2020-12-17 06:26 | ECG_ITS ---
[facility] Test Date: 2020-12-16 Pat Name: Malini Gomez Department: Room: ICU12 Gender: Female Ripshear Operator: : 1970 Requested By: Lindsay Hodge Order Number: [id number] Donald MD: Denise Hartley M.D. Measurements Intervals [place] Rate: 72 P: 63 MN: 149 QRS: 36 QRSD: 105 T: 72 QT: 355 QTc: 388 Interpretive Statements SINUS RHYTHM WITH SINUS ARRHYTHMIA NONSPECIFIC ST & T-WAVE ABNORMALITY Compared to ECG 12/16/2020 03:10:53 Sinus bradycardia no longer present T-wave abnormality still present Electronically Signed On 12-17-2020 7:08:31 CDT by Denise Hartley M.D. [id number]
--- NOTE | 2020-12-17 06:47 | ECG_ITS ---
[facility] Test Date: 2020-12-17 Pat Name: Malini Gomez Department: Room: ICU12 Gender: Female Clinical Engineering Manager: : 1970 Requested By: Lindsay Hodge Order Number: [id number] Bennett MD: Denise Hartley M.D. Measurements Intervals [place] Rate: 48 P: 147 HI: 128 QRS: 50 QRSD: 89 T: 145 QT: 417 QTc: 375 Interpretive Statements ECTOPIC ATRIAL BRADYCARDIA LOW QRS VOLTAGE IN EXTREMITY LEADS POSSIBLE ANTERIOR MYOCARDIAL INFARCTION , OF INDETERMINATE AGE MARKED ST ELEVATION, CONSIDER INFERIOR INJURY ACUTE [place] Compared to ECG 12/16/2020 22:48:39 Bradycardia, nonsinus now present Myocardial infarct finding now present ST (T wave) deviation now present Sinus rhythm no longer present Sinus arrhythmia no longer present T-wave abnormality no longer present Electronically Signed On 12-17-2020 6:56:03 CDT by Denise Hartley M.D. [id number]
--- NOTE | 2020-12-17 06:49 | PC.NURSE ---
Dr. Willis called and gave t.o. to increase Nitro to 7.5
[2020-12-17 07:13] LABS: Basophils % 0.3 %; Eosinophils # 0.1 10^3/uL (0.0-0.8); Eosinophils % 2.2 %; Hematocrit 29.9 % (37.0-47.0); Hemoglobin 9.4 g/dL (11.5-15.3); Lymphocytes # 0.8 10^3/uL (0.8-4.8); Lymphocytes % 22.6 %; Mean Corpuscular HGB Conc 31.4 g/dL (30.0-36.0); Mean Corpuscular Hemoglobin 25.8 pg (28.0-34.0); Mean Corpuscular Volume 82.1 fl (81-99); Mean Platelet Volume 11.6 fL (7.4-10.4); Monocytes # 0.2 10^3/uL (0.2-0.9); Monocytes % 5.9 %; Neutrophils # 2.45 10^3/uL (1.8-7.7); Neutrophils % 68.4 %; Nucleated Red Blood Cells % 0 %; Platelet Count 217 10^3/cmm (130-400); Red Blood Count 3.64 10^6/uL (4.1-5.3); Red Cell Distribution Width 17.6 % (12.1-15.1); White Blood Count 3.6 10^3/uL (4.0-10.0)
[2020-12-17 07:28] LABS: Alanine Aminotransferase 15 U/L (0-33); Alkaline Phosphatase 62 IU/L (35-105); Anion Gap 10.8 (5-19); Aspartate Amino Transferase 28 U/L (0-32); Blood Urea Nitrogen 7 mg/dL (6-20); Calcium 8.2 mg/dL (8.5-10.5); Carbon Dioxide 23 mmol/L (22-29); Chloride 111 mmol/L (98-107); Globulin 3.6 g/dL (1.3-4.6); Glomerular Filtration Rate 130.1 mL/min (90-130); Glucose 89 mg/dL (65-115); Magnesium 2.1 mg/dL (1.7-2.3); Osmolality Calculated 289 mOsm/kg (285-295); Partial Thromboplastin Time 123.6 SECONDS (23.9-36.7); Potassium 3.8 mmol/L (3.5-5.1); Sodium 141 mmol/L (136-145); Total Bilirubin 0.2 mg/dL (0.15-1.2); Total Protein 6.6 g/dL (6.6-8.7)
--- NOTE | 2020-12-17 07:52 | PM.PN ---
Subjective Subjective: Interval history: Patient had episodes with marked ST elevation in inferior leads and ST depression and T wave inversion in posterior lateral leads. This was followed by ventricular bigeminy and 3-4 beat runs of NSVT in CSU and hence she was transferred to ICU around 1130 last night. She was started on nitroglycerin drip @ 5 and heparin GTT. She had 2 other episodes while on nitroglycerin drip around 2:30 AM and 5 AM this morning. These episodes lasted 5 to 10 minutes in duration and patient was in significant distress with diaphoresis and dry heaving associated with last episode this morning. At the time of examination patient complains of feeling tired and drained and not feeling well overall. She denies having any chest pain. Heart rate ranging from mid 40s to 60s overnight. Medications: Reviewed: Yes Vitals/I&O/Wt Last Vital Signs Temp 98.7 F 12/16/20 11:13 Pulse 51 L 12/17/20 05:30 Resp 15 12/17/20 05:30 BP 138/65 12/17/20 05:00 Pulse Ox 97 12/17/20 05:30 12/16/20 12/17/20 12/17/20 22:59 06:59 14:59 Intake Total 857.536 / 857.536 10.575 / 10.575 Balance 857.536 / 857.536 10.575 / 10.575 Weight last 48 hrs Weight 230 lb Weight 233 lb 3 oz Weight 225 lb Physical Exam Narrative: EXAM NARRATIVE: GENERAL: Obese woman sitting in bed in no acute distress HEENT:Pupils equal round reactive to light. No pallor or icterus. NECK: No JVD. No carotid bruit. CARDIOVASCULAR SYSTEM: S1-S2 regular. No murmur rubs or gallops. RESPIRATORY SYSTEM: Chest clear to auscultation. No wheezes rhonchi or rubs heard. No use of accessory muscles. ABDOMEN: Soft, nontender and nondistended. Normal bowel sounds present. EXTREMITIES: No cyanosis or clubbing. No edema. 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 No focal neurological deficits. SKIN: Normal turgor and temperature. PSYCH: Normal insight and judgment. Data : 12/17/20 06:54 10/01/21 06:54 A&P Assessment and plan (1) NSTEMI (non-ST elevated myocardial infarction): EKG showing T wave inversion in inferior leads and T wave flattening in lateral leads on arrival - Troponin T increased from 17 to 65 then decreased to mid 40s. -received ASA, plavix 300 mg and lovenox 100 mg x 1 -Echo reviewed. -Normal coronaries on [facility] yesterday morning. -MINOCA d/t coronary vasospasm. Given Px RCA staining, SCAD is also a possibility. As she has had recurrent overnight episodes, after discussion with Dr. Ashby decision was made to r/o SCAD with IVUS. Status: Acute (2) Vasospastic angina: Blood pressure has been soft however episode of angina was nitrate responsive. -Patient's underlying lupus and vasculitis very likely has a role to play. -Blood pressure has been soft and bradycardia +. continue NTG gtt. -In the interim, I will start her on isodril 2.5 mg thrice a day. continue low dose statin -will add Ranexa and low dose amlodipine as well. -NTG SL PRN while in hospital and on discharge. -Patient was advised to quit smoking. D/C propranolol Status: Acute (3) Vasculitis: Status: Acute (4) Lupus (systemic lupus erythematosus): Status: Acute (5) Smoker: Counselled on smoking cessation Status: Acute Additional A&P Information Mild anemia H/O tachycardia : Was On propranolol at home Elevated TSH: Normal free T4 Bradycardia PVCs/NSVT Thank you for allowing me to participate in patient's care. Please feel free to call with questions or concerns. Attestations Medical Necessity Statement*: needs hospital stay for managment of vasospastic angina Time Spent in Patient Care: 16 - 35 minutes (>than 50% of time spent in counselling and/or direct pt care on unit). Coding Level of Care Code Acute Covering Machine Operator for [facility] Fwcarlos alberto Diagnoses NSTEMI (non-ST elevated myocardial infarction) I21.4 Vasospastic angina I20.1 Vasculitis I77.6 Lupus (systemic lupus erythematosus) M32.9 Smoker F17.200
[2020-12-17] MEDS: ranolazine (12HR) 500 mg Tablet PO ×2 (09:27→18:51)
[2020-12-17] MEDS: aspirin 81 mg EC Tablet PO (09:27)
[2020-12-17] MEDS: pantoprazole DR 40 mg Tablet PO (09:41)
[2020-12-17 10:34] LABS: Erythrocyte Sedimentation Rate 53 mm/hr (0-15)
--- NOTE | 2020-12-17 11:41 | P.PN_ITS ---
Subjective Subjective: Interval history: Has an episode of chest pain overnight, noted T wave inversions on EKG. Currently pain-free. Noting somewhat blurry vision on the right side which states had happened previously and sometimes precedes a migraine headache. Denies numbness or weakness, trouble speaking. No visual field cut off. Vitals/I&O/Wt Last Vital Signs Temp 97.9 F 12/17/20 07:30 Pulse 58 L 12/17/20 11:00 Resp 20 H 12/17/20 11:00 BP 121/66 12/17/20 11:00 Pulse Ox 98 12/17/20 11:00 12/16/20 12/17/20 12/17/20 22:59 06:59 14:59 Intake Total 857.536 / 857.536 55.565 / 55.565 Balance 857.536 / 857.536 55.565 / 55.565 Weight last 48 hrs Weight 104.326 kg Weight 105.772 kg Weight 102.058 kg Physical Exam Narrative: EXAM NARRATIVE: Daughter is in the room. Const: COMMON NORMALS: no acute distress and patient oriented x3 GENERAL APPEARANCE: anxious HENMT: COMMON NORMALS: oropharynx normal Neck/C-Spine: COMMON NORMALS: no JVD Resp: COMMON NORMALS: normal respiratory effort and clear to auscultation bilaterally AUSCULTATION: clear to auscultation bilaterally Cardio: COMMON NORMALS: no JVD, regular rhythm, S1 normal heart sound present, S2 normal heart sound present and No murmurs present (Cardio) RATE: bradycar dic RHYTHM: regular rhythm HEART SOUNDS: S1 normal heart sound present and S2 normal heart sound present GI: COMMON NORMALS: Normal to inspection, nondistended, normoactive bowel sounds present, Soft to palpation and non-tender PALPATION: Yes Soft to palpation Extremity: COMMON NORMALS: no joint enlargement and no pedal edema Neuro: COMMON NORMALS: patient oriented x3 and moves all extremities Skin: GENERAL SKIN EXAM: petechiae (Scattered petechial lesions of lower extremities including upper thighs) Data : 12/17/20 06:54 12/17/20 06:54 A&P Assessment and plan (1) Chest pain: Overnight again episode of chest pain with noted T wave inversion. Extensive discussion with cardiology and patient, with consideration of additional evaluation, to rule out concern of possibility of coronary dissection as per discussion plan is for additional evaluation by IVUS. Suspected vasospasm. Started on low-dose Isordil. Low-dose amlodipine is added as well. Monitor blood pressures closely. Discussed with her also would want her to follow-up with dermatology given underlying SLE. CRP with only mild elevation, ESR pending, complement levels normal. Appreciate cardiology assessment and recommendations. Continue telemetry monitoring. Status: Acute (2) Troponin level elevated: NSTEMI. As above. 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 Previously transiently on Plaquenil for SLE, but discontinued. 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 Discussed with her need to reestablish with rheumatology. Status: Acute (4) Lupus: Status: Acute (5) Leukopenia: Status: Acute Additional A&P Information Blurred vision: oily on the R. Externally does not appear to have any defect, no redness. Pupils are equal and reactive to light. On undilated ophthalmoscopy I could not appreciate gross signs of vitreal hemorrhage. She states she has had the symptoms previously which resolve on their own. She will let us know if there is any changes or worsening. Otherwise possibly meibomian gland dysfunction. History of recurrent esophageal spasm: Reports diagnosis of history of recurrent esophageal spasm. Consider barium swallow after discharge. Although more apparent it seems this may be related to recurrent coronary vasospasm. GERD Recent psychosocial stressors Perimenopausal symptoms Attestations Medical Necessity Statement*: Continue admission for assessment of management of recurrent episodes of chest pain, optimization of antianginal regimen with possible Prinzmetal angina, in setting of soft blood pressures. 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
--- NOTE | 2020-12-17 11:54 | XACV_ITS ---
Exam Room: [facility] Ht: 173 cm Wt: 102 kg BSA: 2.25 m2 Gender: Female : 1970 Any Known Allergies: No known allergies Exam Priority: Routine Procedure(s): Procedure Description: Diagnostic procedure Procedure Description: Coronary IVUS Procedure Description: Coronary Angiography Isma GOETZ; Interventional Findings * For Prinzmetal angina and because of the fact there was staining in the proximal RCA patient was brought back for IVUS. Patient underwent left heart cath yesterday, because of technical problems we were not able to perform the IVUS. She was noted to have recurrent chest pain with dynamic EKG changes and ST elevation in the RCA relieved with nitroglycerin immediately.IVUS guided examination of RCA, using JR 3 guide with sideholes were able to cross into RCA with the help of cougar wire. IVUS catheter was introduced into RCA and parked in the distal segment. It was drawn back twice to assess the lumen. No dissection was noted. No significant stenosis noted. Proximal RCA spasm was noted , there appeared to be distal PLB tapering or cutting off could be small vessel occlusion however it is too small to intervene. Medical management advised.Conclusion: No dissection no significant stenosis noted. Small distal PLB occlusion which could be incidental findings are cause for troponin bump. Continue aspirin statin Plavix beta-adrienne and antianginal agent. Continue treatment of Prinzmetal angina.. Pressures Phase:Rest AO : 133 / 80 ( 101 ) @ 1:57:00 PM Clinical Evaluation EBL: 5mL-10mL Procedural Details Procedure Consent Obtained. Pre-Procedure Time Out. Identified patient by full name and date of as verbalized by the patient/guarantor. Does the consent match the physician's order: Yes. Accurate & Complete Informed Consent: Yes. Inpatient/Outpatient History & Physical on Chart: Yes. If H&P is completed, is and addenduem needed: N/A; If yes, is the addendum complete: N/A. Visualize and Verify Site with Patient/Guarantor: N/A. Relevant Radiology Images available: Yes. Pre-op teaching completed and patient verbalized understanding. The risks, benefits, and alternatives of sedation and/or procedure were discussed by physician. The patient agrees to continue. Procedure started. PERRLA. Strong, equal hand program support clerk bilaterally. Lungs clear x 5 lobes. IV Fluids: 0.9% NaCl at KVO. 0 mL infused prior to landscape laborer. Oxygen started at 2liters/min via nasal canula. right groin was prepped with chloroprep then draped in the usual sterile fashion. right radial was prepped with chloroprep then draped in the usual sterile fashion. Physician notified. Equipment: 6F - Radial. Cardiac Cath Pack. ACIST Manifold Kit Model BT 2000. Heparinized Saline (2 units/mL), 1000 mL bag. Melissa Madrigal RN circulate Sedrick Markham CPT, RT scrub. Physician arrived. Physician scrubbed in. Immediate Pre-Procedure Time Out. Correct Patient: Yes; Correct Procedure: Yes; Correct Site: Yes; Correct Patient Position: Yes; Correct Supplies: Yes; Dried Flammable Prep: Yes; Blood Products Available: No;. Lidocaine 1% infiltrated to the right radial. Arterial access obtained. 6 macedonian JR 4 SH guide catheter was inserted over the wire. ACT drawn. Results 123 seconds. Therapeutic limits - pre-heparin administration 90-150 seconds and monitoring heparin during a vascular procedure >250 seconds. Inventory is [employer] Network Systemsgar XT .014 190cm Str. Guidewire. Percello guidewire was advanced through the guide catheter to lesion in the prox RCA. [place] in over wire to mid RCA. [place] out. wire out. results checked. results checked. Catheter out. A TR Band was successful obtaining hemostatsis at the Right Radial artery insertion site. TR band placed. Hemostasis obtained. Post Procedure: Pulses reassessed and unchanged. PERRLA. Strong, equal hand program support clerk bilaterally. No VTE prophylaxis required. Fluoro: 3:06. Complications: none. Total IV fluids: 35 mL. Medication's Wasted: Lidocaine 1% = 15 mL. Medication's Wasted: Nitro = 49.8 mg. Medication's Wasted: Heparin = 1000 units. Medication's Wasted: Other = fentanyl 50 mcg. Contrast type used: Omnipaque 300 mgI/mL, 500 mL bottle. [id number]. Estimated blood loss: 5mL-10mL. Procedure completed. Patient transferred by bed to ICU. Vital chart was stopped. Access Site Site: Right Radial artery Sheath Size: 6 Fr Hemostasis Method: TR Band Hemostasis Success: Successful Procedure Medications Start: 2:32 PM Stop: 2:32 PM Medication: Versed Amount: 1 mg Route: I.V. Start: 2:32 PM Stop: 2:32 PM Medication: Fentanyl Amount: 25 mcg Route: I.V. Start: 2:35 PM Stop: 2:35 PM Medication: Fentanyl Amount: 25 mcg Route: I.V. Start: 2:37 PM Stop: 2:37 PM Medication: Nitrogylcerin Amount: 200 mcg Route: I.A. Start: 2:43 PM Stop: 2:43 PM Medication: Heparin Amount: 5000 units Route: I.V. I, the attending physician, have reviewed and verified all procedure medications. Yes, all medications given per verbal order History/Risk Factors Hypertension: No Dyslipidemia: No Peripheral Arterial Disease (PAD): No Myocardial Infarction (SD): No Obesity: Yes Renal Disease: No Tobacco Use: Current/Recent(w/in 1 year) Prior Interventions PCI: No CABG: No Valve Surgery: No Report Signatures Finalized by Smitha Ashby MD on 01/02/2021 05:17 PM
[2020-12-17] MEDS: amlodipine 5 mg Tablet 2.5 MG PO (12:42)
[2020-12-17 14:14] LABS: Partial Thromboplastin Time 93.9 SECONDS (23.9-36.7)
--- NOTE | 2020-12-17 14:15 | W.PM.OPSUD ---
Surgery/Procedure H&P Update DATE OF PROCEDURE: December 17, 2020 DATE H&P PERFORMED: 12/15/20 H&P UPDATE INFORMATION: I have reviewed H&P completed within last 30 days and I have examined patient prior to procedure PREOP DIAGNOSIS: Recurrent chest pain with abnormal EKG PLANNED PROCEDURE: Operation Date: 12/16/20 06:00 Proposed Procedures p Cardiac Catheterization(Not Applicable) - Smitha Ashby MD PATIENT REASSESSED PRIOR TO SEDATION, WITH NO CHANGE NOTED: Yes PHYSICAL EXAM: alert, oriented x 3 and clear to auscultation bilaterally AIRWAY EVAL/ANESTHESIA PLAN: ASA II and Risks, benefits & alternatives of sedation and/or procedure discussed
[2020-12-17] MEDS: isosorbide dinitrate 20 mg Tablet 2.5 MG PO ×2 (16:04→20:24)
[2020-12-17 16:43] LABS: Partial Thromboplastin Time > 250.0 SECONDS (23.9-36.7)
[2020-12-17] MEDS: docusate sodium 100 mg Capsule PO (18:51)
--- NOTE | 2020-12-17 18:59 | PC.NURSE ---
TR Band Air Release TR band started with 15 mL of air. 2mL of air removed at each of the following times: 1730 1745 1830 No signs or symptoms of bleeding or hematoma at the site. Will continue to monitor. Report handed off to BONI Lara to continue the release of air (9mL)
[2020-12-17] MEDS: atorvastatin 40 mg Tablet 10 MG PO (20:24)
--- NOTE | 2020-12-17 21:13 | PC.NURSE ---
AO x4, no c/o at this time, call light within reach, daughter at bedside
[2020-12-18] VITALS (48 sets, daily range): BP systolic 72–170; BP diastolic 40–96; PULSE 45–95; RESP 8–23; TEMP 36.6–36.8; O2SAT 94–100
[2020-12-18] MEDS: acetaminophen 325 mg Tablet 650 MG PO ×3 (03:34→16:41)
[2020-12-18 05:21] LABS: Basophils % 0.3 %; Eosinophils # 0.1 10^3/uL (0.0-0.8); Hemoglobin 8.9 g/dL (11.5-15.3); Lymphocytes # 0.6 10^3/uL (0.8-4.8); Lymphocytes % 17.4 %; Mean Corpuscular HGB Conc 31.8 g/dL (30.0-36.0); Mean Corpuscular Hemoglobin 26.2 pg (28.0-34.0); Mean Corpuscular Volume 82.4 fl (81-99); Monocytes # 0.2 10^3/uL (0.2-0.9); Monocytes % 6.3 %; Neutrophils # 2.64 10^3/uL (1.8-7.7); Neutrophils % 72.7 %; Nucleated Red Blood Cells % 0 %; Platelet Count 192 10^3/cmm (130-400); Red Cell Distribution Width 17.8 % (12.1-15.1); White Blood Count 3.6 10^3/uL (4.0-10.0)
[2020-12-18 05:41] LABS: Partial Thromboplastin Time 29.7 SECONDS (23.9-36.7)
[2020-12-18 05:46] LABS: Alanine Aminotransferase 12 U/L (0-33); Albumin Level 3.1 g/dL (3.5-5.2); Alkaline Phosphatase 61 IU/L (35-105); Anion Gap 11.5 (5-19); Aspartate Amino Transferase 17 U/L (0-32); Blood Urea Nitrogen 6 mg/dL (6-20); Calcium 7.9 mg/dL (8.5-10.5); Carbon Dioxide 24 mmol/L (22-29); Chloride 107 mmol/L (98-107); Globulin 3.1 g/dL (1.3-4.6); Glomerular Filtration Rate 88.2 mL/min (90-130); Glucose 84 mg/dL (65-115); Osmolality Calculated 285 mOsm/kg (285-295); Potassium 3.5 mmol/L (3.5-5.1); Sodium 139 mmol/L (136-145); Total Bilirubin 0.2 mg/dL (0.15-1.2); Total Protein 6.2 g/dL (6.6-8.7)
--- NOTE | 2020-12-18 05:54 | PC.NURSE ---
ST elevation for 12 minutes then returned to sinus lindsey, Nitro drip restarted
[2020-12-18] MEDS: amlodipine 5 mg Tablet 2.5 MG PO ×2 (09:09→20:46)
[2020-12-18] MEDS: ranolazine (12HR) 500 mg Tablet PO ×2 (09:10→17:29)
[2020-12-18] MEDS: pantoprazole DR 40 mg Tablet PO ×2 (09:11→17:30)
[2020-12-18] MEDS: aspirin 81 mg EC Tablet PO (09:11)
[2020-12-18] MEDS: isosorbide dinitrate 20 mg Tablet 2.5 MG PO ×3 (09:11→20:41)
--- NOTE | 2020-12-18 10:05 | P.PN_ITS ---
Subjective Subjective: Interval history: This morning had an episode of chest pain, nitro drip was restarted. Pain resolved. No other complaints this morning, although is disappointed in her setback, wishes she had instead just taken a nitroglycerin. Vitals/I&O/Wt Last Vital Signs Temp 97.9 F 12/18/20 07:00 Pulse 57 L 12/18/20 08:00 Resp 22 H 12/18/20 08:00 BP 108/64 12/18/20 08:00 Pulse Ox 99 12/18/20 06:00 12/17/20 12/18/20 12/18/20 22:59 06:59 14:59 Intake Total 1960.523 / 3016.088 0 / 3016.088 430 / 430 Output Total 600 / 600 Balance 1960.523 / 3016.088 -600 / 2416.088 430 / 430 Weight last 48 hrs Weight 104.326 kg Weight 104.326 kg Physical Exam Narrative: EXAM NARRATIVE: Daughter is in the room. Const: COMMON NORMALS: no acute distress and patient oriented x3 GENERAL APPEARANCE: anxious HENMT: COMMON NORMALS: oropharynx normal Neck/C-Spine: COMMON NORMALS: no JVD Resp: COMMON NORMALS: normal respiratory effort and clear to auscultation bilaterally AUSCULTATION: clear to auscultation bilaterally Cardio: COMMON NORMALS: no JVD, regular rhythm, S1 normal heart sound present, S2 normal heart sound present and No murmurs present (Cardio) RATE: bradycardic RHYTHM: regular rhythm HEART SOUNDS: S1 normal heart sound present and S2 normal heart sound present GI: COMMON NORMALS: Normal to inspection, nondistended, normoactive bowel so unds present, Soft to palpation and non-tender PALPATION: Yes Soft to palpation Extremity: COMMON NORMALS: no joint enlargement and no pedal edema Neuro: COMMON NORMALS: patient oriented x3 and moves all extremities Skin: GENERAL SKIN EXAM: petechiae (Scattered petechial lesions of lower extremities including upper thighs) Data : 12/18/20 05:01 12/18/20 05:01 A&P Assessment and plan (1) Chest pain: This morning again episode of chest pain which was fairly severe, and was restarted on nitroglycerin. No coronary artery dissection evidence noted on IVUS yesterday. Suspected vasospasm. Started on low-dose Isordil and amlodipine. Ranolazine. Wean down nitro drip. Appreciate cardiology recommendations with optimization of antianginal medications in the setting of the soft blood pressures. Continue telemetry monitoring. Status: Acute (2) Troponin level elevated: NSTEMI. As above. 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 Previously transiently on Plaquenil for SLE, but discontinued. Last seen color artist 19 years ago, has not followed up since. Discussed with her need to reestablish with rheumatology. Status: Acute (4) Lupus: Status: Acute (5) Leukopenia: Status: Acute Additional A&P Information Blurred vision: oily on the R on12/17. Externally does not appear to have any defect, no redness. Pupils are equal and reactive to light. On undilated ophthalmoscopy I could not appreciate gross signs of vitreal hemorrhage. She states she has had the symptoms previously which resolve on their own. She will let us know if there is any changes or worsening. Otherwise possibly meibomian gland dysfunction. History of recurrent esophageal spasm: Reports diagnosis of history of recurrent esophageal spasm. Consider barium swallow after discharge. Although more apparent it seems this may be related to recurrent coronary vasospasm. Subclinical hypothyroidism noted: TSH 8.04, free T4 normal. GERD Recent psychosocial stressors Perimenopausal symptoms Attestations Medical Necessity Statement*: Continue admission for cyst management of recurrent anginal episodes secondary to vasospastic angina. Coding Level of Care Code Acute Commercial Account Executive for Vikram Del C[employer] Diagnoses Chest pain R07.9 Troponin level elevated R77.8 Petechiae R23.3 Lupus M32.9 Leukopenia D72.819
--- NOTE | 2020-12-18 12:07 | PC.NURSE ---
[address] Ash[address]. Reviewed patients telemetry strips, medications, vital signs, and plan of care. Dr. Ashby discussed patient's diagnosis with her. Orders to change amliodipine to QHS, start Indocin tonight, discontinue Nitro drip, and use SL nitro for chest pain.
--- NOTE | 2020-12-18 17:04 | P.PN_ITS ---
Subjective Subjective: Interval history: Patient is status post IVUS which did not show dissection of the right coronary artery. Patient had another episodes of geriatric case manager chest pain with mild ST elevation in the inferior leads. Medications: Reviewed: Yes Vitals/I&O/Wt Last Vital Signs Temp 98.0 F 12/18/20 11:00 Pulse 58 L 12/18/20 14:00 Resp 15 12/18/20 12:30 BP 96/62 12/18/20 12:30 Pulse Ox 99 12/18/20 12:00 12/18/20 12/18/20 12/18/20 06:59 14:59 22:59 Intake Total 0 / 3016.088 938.4 / 938.4 Output Total 600 / 600 Balance -600 / 2416.088 938.4 / 938.4 Weight last 48 hrs Weight 230 lb Weight 230 lb Physical Exam Narrative: EXAM NARRATIVE: GENERAL: Patient is alert, awake and oriented x3. NECK: No jugular vein distension. HEENT: No cyanosis. No icterus. No pallor. HEART: Regular S1 and S2. No murmur, rub or gallop. LUNGS: Clear to auscultate bilaterally. ABDOMEN: Soft, nontender and nondistended. Positive bowel sounds. No guarding, rebound or tenderness. CENTRAL NERVOUS SYSTEM: Grossly nonfocal. EXTREMITIES: Lower extremities without edema bilaterally. Const: COMMON NORMALS: alert Resp: COMMON NORMALS: clear to auscultation bilaterally AUSCULTATION: clear to auscultation bilaterally Neuro: SENSORIUM/ORIENTATION: Yes alert Data : 12/18/20 05:01 12/18/20 05:01 A&P Assessment and plan (1) Vasospastic angina: I have detailed discussion with the patient we went through etiology for vasospastic Prinzmetal angina/mechanism of coronary spasm. Patient has multiple risk factor for it including tobacco abuse, endothelial dysfunction, high cardiac inflammatory markers due to longstanding lupus, being postmenopausal, as we know that patients mental angina mostly happens early in the morning during cicadrin rhythm, we therefore advised treating lupus keeping's CRP and ESR low, switching amlodipine calcium channel adrienne in the night, continue isosorbide dinitrate 3 times a day, we discussed regarding stopping and quitting smoking. Patient fully understood and agreed with it. Status: Acute (2) NSTEMI (non-ST elevated myocardial infarction): Secondary to severe coronary vasospasm. She has been ruled out for dissection of the right coronary artery as on the first angiogram there was some dye hanging and we would like to perform IVUS IVUS was performed which did not show dissection. Stent was confirmed patient has vasospastic angina. Status: Acute (3) Vasculitis: As per medicine Status: Acute (4) Lupus (systemic lupus erythematosus): As per medicine and outpatient rheumatology Status: Acute Qualifiers: Systemic lupus erythematosus type: other Systemic lupus erythematosus organ involvement: other Qualified Code(s): M32.19 - Other organ or system involvement in systemic lupus erythematosus (5) Smoker: Advised quitting smoking and counseled about Status: Acute Additional A&P Information Mild anemia H/O tachycardia : Was On propranolol at home Elevated TSH: Normal free T4 Bradycardia PVCs/NSVT Thank you for allowing me to participate in patient's care. Please feel free to call with questions or concerns. Attestations Medical Necessity Statement*: Patient require continuation hospitalization for above defined care Coding Level of Care Code Established Pt Acute Sheltered Workshop Executive Director for Chg Fwd Patient Type Established History Detailed Exam Detailed Medical Decision Making Moderate Complexity Diagnoses Vasospastic angina I20.1 NSTEMI (non-ST elevated myocardial infarction) I21.4 Vasculitis I77.6 Lupus (systemic lupus erythematosus) M32.19 Systemic lupus erythematosus type: other Systemic lupus erythematosus organ involvement: other Smoker F17.200
[2020-12-18] MEDS: hydroxychloroquine 200 mg Tablet 400 MG PO (18:46)
[2020-12-18] MEDS: atorvastatin 40 mg Tablet 10 MG PO (20:45)
[2020-12-19] VITALS (8 sets, daily range): BP systolic 104–115; BP diastolic 52–72; PULSE 46–78; RESP 17–25; TEMP 36.6–36.7; O2SAT 90–98
[2020-12-19 04:27] LABS: Hematocrit 31.7 % (37.0-47.0); Hemoglobin 10.1 g/dL (11.5-15.3); Lymphocytes # 0.5 10^3/uL (0.8-4.8); Lymphocytes % 13.5 %; Mean Corpuscular HGB Conc 31.9 g/dL (30.0-36.0); Mean Corpuscular Hemoglobin 25.3 pg (28.0-34.0); Mean Corpuscular Volume 79.4 fl (81-99); Mean Platelet Volume 12.3 fL (7.4-10.4); Monocytes % 1.2 %; Neutrophils # 2.88 10^3/uL (1.8-7.7); Neutrophils % 84.7 %; Nucleated Red Blood Cells % 0 %; Platelet Count 196 10^3/cmm (130-400); Red Blood Count 3.99 10^6/uL (4.1-5.3); Red Cell Distribution Width 17.2 % (12.1-15.1); White Blood Count 3.4 10^3/uL (4.0-10.0)
[2020-12-19 04:48] LABS: Slide Review Slide Review Perform
[2020-12-19 04:55] LABS: Alanine Aminotransferase 13 U/L (0-33); Albumin Level 3.4 g/dL (3.5-5.2); Alkaline Phosphatase 66 IU/L (35-105); Aspartate Amino Transferase 16 U/L (0-32); Blood Urea Nitrogen 6 mg/dL (6-20); Calcium 8.7 mg/dL (8.5-10.5); Carbon Dioxide 23 mmol/L (22-29); Chloride 108 mmol/L (98-107); Globulin 3.8 g/dL (1.3-4.6); Glomerular Filtration Rate 105.4 mL/min (90-130); Glucose 131 mg/dL (65-115); Osmolality Calculated 289 mOsm/kg (285-295); Sodium 140 mmol/L (136-145); Total Bilirubin 0.2 mg/dL (0.15-1.2); Total Protein 7.2 g/dL (6.6-8.7)
[2020-12-19] MEDS: hydroxychloroquine 200 mg Tablet 400 MG PO (05:35)
--- NOTE | 2020-12-19 07:44 | PC.NURSE ---
Shift Note Frequent safety and comfort rounds continue. Orders and/or nursing care completed as indicated. Patient monitored for response to intervention and treatment(s). Education provided includes plan of care. Patient and/or inventory representative verbalized understanding. Will continue to monitor.
[2020-12-19] MEDS: aspirin 81 mg EC Tablet PO (08:50)
[2020-12-19] MEDS: pantoprazole DR 40 mg Tablet PO (08:50)
[2020-12-19] MEDS: ranolazine (12HR) 500 mg Tablet PO (08:50)
[2020-12-19] MEDS: isosorbide dinitrate 20 mg Tablet 2.5 MG PO ×2 (08:51→15:15)
--- NOTE | 2020-12-19 16:16 | P.PN_ITS ---
Subjective Subjective: Interval history: No more chest pain overnight. Medications: Reviewed: Yes Vitals/I&O/Wt Last Vital Signs Temp 97.8 F 12/19/20 11:29 Pulse 78 12/19/20 15:58 Resp 25 H 12/19/20 15:58 BP 104/65 12/19/20 15:58 Pulse Ox 90 12/19/20 15:58 12/19/20 12/19/20 12/19/20 06:59 14:59 22:59 Intake Total 1490 / 3260.4 340 / 340 254 / 594 Balance 1490 / 3260.4 340 / 340 254 / 594 Weight last 48 hrs Weight 222 lb 1.6 oz Weight 230 lb Physical Exam Narrative: EXAM NARRATIVE: GENERAL: Patient is alert, awake and oriented x3. NECK: No jugular vein distension. HEENT: No cyanosis. No icterus. No pallor. HEART: Regular S1 and S2. No murmur, rub or gallop. LUNGS: Clear to auscultate bilaterally. ABDOMEN: Soft, nontender and nondistended. Positive bowel sounds. No guarding, rebound or tenderness. CENTRAL NERVOUS SYSTEM: Grossly nonfocal. EXTREMITIES: Lower extremities without edema bilaterally. Const: COMMON NORMALS: alert Resp: COMMON NORMALS: clear to auscultation bilaterally AUSCULTATION: clear to auscultation bilaterally Neuro: SENSORIUM/ORIENTATION: Yes alert Data : 12/19/20 03:42 12/19/20 03:42 A&P Assessment and plan (1) Vasospastic angina: I have detailed discussion with the patient we went through etiology for vasospastic Prinzmetal angina/mechanism of coronary spasm. Patient has multiple risk factor for it including tobacco abuse, endothelial dysfunction, high cardiac inflammatory markers due to longstanding lupus, being postmenopausal, as we know that patients mental angina mostly happens early in the morning during cicadrin rhythm, we therefore advised treating lupus keeping's CRP and ESR low, switching amlodipine calcium channel adrienne in the night, continue isosorbide dinitrate 3 times a day, we discussed regarding stopping and quitting smoking. Patient fully understood and agreed with it. As defined above we will go according to the plan. Patient has been started on anti-inflammatory medicine/steroids by Dr. Medina, continue amlodipine in the night with isosorbide mononitrate and anti-inflammatory Status: Acute (2) NSTEMI (non-ST elevated myocardial infarction): Vasospastic angina. Continue current regimen Status: Acute (3) Vasculitis: patient has been started on steroid Status: Acute (4) Lupus (systemic lupus erythematosus): Started on steroids and Plaquenil Status: Acute Qualifiers: Systemic lupus erythematosus type: other Systemic lupus erythematosus organ involvement: other Qualified Code(s): M32.19 - Other organ or system involvement in systemic lupus erythematosus (5) Smoker: Advised quitting smoking and counseled about Status: Acute Additional A&P Information Mild anemia H/O tachycardia : Was On propranolol at home Elevated TSH: Normal free T4 Bradycardia PVCs/NSVT Thank you for allowing me to participate in patient's care. Please feel free to call with questions or concerns. Attestations Medical Necessity Statement*: Patient require continuation hospitalization for above defined care Coding Level of Care Code Established Pt Acute Certified Health Education Specialist for Vikram Del Cid Patient Type Established History Detailed Exam Detailed Medical Decision Making Moderate Complexity Diagnoses Vasospastic angina I20.1 NSTEMI (non-ST elevated myocardial infarction) I21.4 Vasculitis I77.6 Lupus (systemic lupus erythematosus) M32.19 Systemic lupus erythematosus type: other Systemic lupus erythematosus organ involvement: other Smoker F17.200
--- NOTE | 2020-12-19 16:30 | PC.NURSE ---
Discharge Note Patient discharged to home via private vehicle accompanied by daughter. Discharge instructions reviewed with patient and/or credit resolution representative. Mobile pharmacy medications and/or prescriptions provided. Belongings/home medications returned.
--- NOTE | 2020-12-19 23:09 | P.DS_ITS ---
Discharge Providers Date of Admission: 12/15/20 18:37 Date of Discharge: December 19, 2020 Attending Provider at Admission: Luz Pedraza MD Attending Provider at Discharge: Colin Rosas Diagnoses at Discharge Discharge Diagnosis (1) Vasospastic angina: Status: Acute (2) NSTEMI (non-ST elevated myocardial infarction): Status: Acute (3) Vasculitis: Status: Acute (4) Lupus (systemic lupus erythematosus): Status: Acute Qualifiers: Systemic lupus erythematosus type: other Systemic lupus erythematosus organ involvement: other Qualified Code(s): M32.19 - Other organ or system involvement in systemic lupus erythematosus (5) Smoker: Status: Acute (6) Leukopenia: Status: Acute Reason for Visit Reason for Visit: CHEST PAIN Hospital Course Hospital Course 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 She has been under a lot of stress at work recently, and noted that during one of the recent episodes had set up an EKG, with finding of T wave flattening, and subsequently elevation with resolution spontaneously. Chest pain episodes vary in duration. She had not taken any nitroglycerin for it at home. At presentation with noted T wave inversion and flattening in lateral leads, t roponin elevation [id number], was assessed by cardiology, started on aspirin, Plavix, anticoagulation initially for non-STEMI. With noted sinus bradycardia in the 50s, soft blood pressures, propranolol/beta-adrienne withheld. TSH noted 8.04, but with normal free T4 at 1.01. Unremarkable electrolytes. Initially with some reports of possibly positional relief with episodes at night sitting up, her, without suggestion of pericarditis noted on EKG or findings of pericarditis on subsequently obtain echocardiography, which showed normal ejection fraction, mild hypokinesis of septal and basal to mid inferior hunter, normal diastolic function. Mild MVR, TVR. With a number of episodes of chest pain in the hospital, usually occurring early in the morning, with noted T wave inversions, ST-T wave changes, underwent additional assessment by coronary angiography which showed normal coronaries, with some noted RCA staining, consideration of possible endothelial dysfunction, but with recurrent episode, excluding SCAD as a consideration was recommended, and she underwent additional assessment by IVUS which was negative for dissection. With episodic nature, dynamic EKG changes with episodes, she was started on Isordil, amlodipine, Ranexa for vasospastic angina. Introduced gradually due to soft blood pressures, low blood pressures subsequently gradually also improved. Morning serum cortisol was obtained, and was not abnormal but probably not entirely adequate at 10.85. CRP and ESR were assessed. Noted mild ovation of CRP but moderate elevation of ESR at 5.4 and 53 respectively. Given known underlying SLE, associated also with vasculitis, with noted endothelial dysfunction, with concern for contribution of vasculitic component to the vasospastic angina per discussion with cardiology and with her with consideration of risks and benefits, and with clinical condition not indicating active infection, wanted to proceed with initiation of anti-inflammatory pulse regimen of methylprednisolone and restarting of Plaquenil given recurrent episodes and dangerous nature of the endorgan dysfunction. With initiation of antianginal and anti-inflammatory therapy tonight had a first night/morning without recurrence of chest pain. Did well through the day and wanted to discharge home. She is asked to follow-up with rheumatology at soonest available appointment for additional assessment and to continue monitoring steroid taper, Plaquenil therapy. 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 She had a transient oily blurring of vision in the right eye which she relates to prior symptoms which resolved spontaneously and did so during the hospitalization as well. Could be related to migraine, or possibly meibomian gland dysfunction. Undilated eye exam did not show obvious intravitreal hemorrhage, however, as per discussion she is encouraged to seek full dilated exam to exclude additional more serious etiologies. She is continued as per cardiology recommendation on amlodipine, Isordil, aspirin, statin, nitroglycerin as needed and ranolazine. She will be following up with cardiology here in town. She preferred to set up her own follow-up with rheumatology and primary provider. With persistent bradycardia, although thought to be probably subclinical hypothyroidism, she was concerned that the bradycardia may be related to symptomatic hypothyroidism, indicating that she had previously been treated with levothyroxine, and requested to reinitiate on low-dose levothyroxine prior to discharge. Thyroid function will also need additional follow-up which she states will be seeking in addition to other the medical other problems that include perimenopausal symptoms with her primary provider. Physical Exam Narrative: EXAM NARRATIVE: He is accompanied by her daughter. Const: COMMON NORMALS: no acute distress and patient oriented x3 GENERAL APPEARANCE: anxious HENMT: COMMON NORMALS: oropharynx normal Neck/C-Spine: COMMON NORMALS: no JVD Resp: COMMON NORMALS: normal respiratory effort and clear to auscultation bilaterally AUSCULTATION: clear to auscultation bilaterally Cardio: COMMON NORMALS: no JVD, regular rhythm, S1 normal heart sound present, S2 normal heart sound present and No murmurs present (Cardio) RATE: bradycardic RHYTHM: regular rhythm HEART SOUNDS: S1 normal heart sound present and S2 normal heart sound present GI: COMMON NORMALS: Normal to inspection, nondistended, normoactive bowel sounds present, Soft to palpation and non-tender PALPATION: Yes Soft to palpation Extremity: COMMON NORMALS: no joint enlargement and no pedal edema Neuro: COMMON NORMALS: patient oriented x3 and moves all extremities Skin: GENERAL SKIN EXAM: petechiae (Scattered petechial lesions of lower extremities including upper thighs) Discharge Data Data Completed and Pending: Completed Studies During Hospitalization Category Date Time Status XR chest 1V jocelyn ble [id number] Stat Exams 12/15/20 15:27 Completed CV. 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 ENGINEER request for service Routin e Exams 12/17/20 11:54 Taken MINE ENVIRONMENTAL ENGINEER request for service Urgent Exams 12/16/20 06:00 Taken Labs from last 24 hours 12/19/20 12/19/20 03:42 03:42 WBC 3.4 L RBC 3.99 L Hgb 10.1 L Hct 31.7 L MCV 79.4 L MCH 25.3 L MCHC 31.9 RDW 17.2 H Plt Count 196 MPV 12.3 H Neut % (Auto) 84.7 Lymph % (Auto) 13.5 [place] % (Auto) 1.2 Eos % (Auto) 0.0 Baso % (Auto) 0.0 Neut # (Auto) 2.88 Lymph # (Auto) 0.5 L [place] # (Auto) 0.0 L Eos # (Auto) 0.0 Baso # (Auto) 0.0 Nucleated RBC % (a uto) 0 Nucleated RBCs # 0.0 Sodium 140 Potassium 4.0 Chloride 108 H Carbon Dioxide 23 Anion Gap 13.0 BUN 6 Creatinine 0.6 GFR Calculation 105.4 Glucose 131 H Calculated Osmolal ity 289 Calcium 8.7 Total Bilirubin 0.2 AST 16 ALT 13 Alkaline Phosphata se 66 Total Protein 7.2 Albumin 3.4 L Globulin 3.8 Vitals: Last Vital Signs Temp 97.8 F 12/19/20 11:29 Pulse 64 12/19/20 16:00 Resp 19 H 12/19/20 16:00 BP 110/72 12/19/20 16:00 Pulse Ox 90 12/19/20 15:58 Discharge Plan Discharge Patient Disposition: Home Condition: Stable Prescriptions: New atorvastatin 40 mg Tablet 10 mg PO BEDTIME Qty: 90 RF: 0 amlodipine 5 mg Tablet 2.5 mg PO BEDTIME Qty: 45 RF: 0 aspirin 81 mg Tablet,Delayed Release (Dr/Ec) 81 mg PO DAILY Qty: 90 RF: 0 hydroxychloroquine 200 mg Tablet 400 mg PO DAILY Qty: 30 RF: 0 isosorbide dinitrate 5 mg tablet 2.5 mg PO TID Qty: 135 RF: 0 pantoprazole 40 mg Tablet,Delayed Release (Dr/Ec) 40 mg PO DAILY Qty: 90 RF: 0 ranolazine 500 mg Tablet Extended Release 12 Hr 500 mg PO BID Qty: 60 RF: 0 nitroglycerin 0.4 mg tablet, sublingual 0.4 mg sublingual Q5M PRN (Reason: chest pain) Qty: 20 RF: 0 prednisone 5 mg tablet See Rx Instructions .ROUTE .COMPLEX Qty: 147 RF: 0 levothyroxine 13 mcg capsule 13 mcg PO DAILY Qty: 30 RF: 0 Discontinued propranolol 20 mg Tablet 10 mg PO DAILY PRN (Reason: Blood Pressure) RF: 0 Discharge Orders: Discharge Order (Routine); Ordered 12/19/20 Ordered By: Colin Rosas Referrals: Primary, provider [Other] - 4-7 days (Please call for an follow-up with your PCP in 4 to 7 days. 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 If you haven't heard from them by Sunday. Please call ) Discharge Diet: Cardiac Discharge Activity: Limit activity as instructed and Return to work/school after cleared by PCP/Specialist Patient Instructions: Hydroxychloroquine (By mouth) (Plaquenil), Isosorbide Dinitrate (By mouth), Levothyroxine (By mouth), Aspirin (By mouth), Amlodipine (By mouth), Nitroglycerin, Rapid Release (By mouth), Atorvastatin (By mouth), Prednisolone (By mouth), Pantoprazole (By mouth), Ranolazine (By mouth), Systemic Lupus Erythematosus, Angina (GEN) Activity Restrictions/Additional Instructions: Please avoid overexertion, excessively stressful situations. Hold off on returning to work until any episodes of angina are subsiding, you are cleared by your primary provider. In case of episode of angina, taking nitroglycerin, may repeat up to 3 times, but if not resolving, call 911. Please monitor your blood pressures at home, as well as your heart rates. Please note your heart rates have been on the slow side, and the 50s. Please do not take any more propranolol. Please note in some cases amlodipine may slow down the heart rate. If noting heart rates below 50, please do not take amlodipine. Similarly if blood pressure is noted low, less than90 or less systolic, or 50 or less diastolic, please do not take amlodipine Isodril or nitroglycerin. In case you noticed palpitations, experience fainting, or other concerning symptoms, seek medical attention. Please follow-up with rheumatology at soonest available appointment to follow-up with regards to SLE, vasculitis, on initiation of Plaquenil, steroid taper. Please coordinate with rheumatology as to duration of taper and additional adjustments to treatment. Please review attached pressures for additional information on the medications. Additional prescription for pantoprazole is provided as well for gastroprotection while on steroid. Please follow-up with your drug clerk for eye exam. Please discuss with your primary doctor reassessment of thyroid function, reinitiation of levothyroxine with history of hypothyroidism. Please discuss with your primary doctor also regarding options to help with control of perimenopausal symptoms and related concerns. Your white blood cell count was noted although normal as well, 3.4 thousand, please have your primary doctor reassess your blood counts at the next visit. Discharge Attestations Time Spent in Discharge Care*: greater than 30 min Quality Metrics Clinical Quality Measures During this hospital stay, did patient experience: None Coding Level of Care Code Acute [facility] note Diagnoses Vasospastic angina I20.1 NSTEMI (non-ST elevated myocardial infarction) I21.4 Vasculitis I77.6 Lupus (systemic lupus erythematosus) M32.19 Systemic lupus erythematosus type: other Systemic lupus erythematosus organ involvement: other Smoker F17.200 Leukopenia D72.819
--- NOTE | 2020-12-20 15:02 | PC.SOCIAL ---
discharge follow up call made. spoke with patient. patient reports she is feeling much better, denies sob or chest pain. patient picked up all new medications from the pharmacy and she is taking as directed. patient is aware that she needs to dc'd propranolol. Patient has made her follow up appointment with her computer forensic specialist for next week, she can't remember the day, technical proposal writer will cancel follow up appointment with Dali Hernandez. Patient has a follow up appointment with reception agent and is working on her pcp follow up. she currently doesn't have a pcp. Discussed not returning to work until follow up with pcp, patient has understanding. Discusses with patient if she has any chest pain or shortness of breath to take nitro and if it doesn't resolve to call 911. patient will start monitoring her blood pressure and heart rate, she is getting a cuff. patient is aware not to take her amlodipine if her HR is less than 50. Patient had many good things to say about the nurses and doctors that took care of her while she was at [facility], those were passed on to the nurse hourly shift manager of ICU/CSU.
--- NOTE | 2020-12-21 11:21 | PC.SOCIAL ---
Idalia at [facility] pharmacy called regarding levothyroxine the dose ordered at discharge is 13 mcg, tabs only come in [address] laird patient can take 0.5 tabs daily.
== END 2020-12-19 16:30 | disposition home or self-care (01) | DRG 282 ==
LOC: ER 16:33 → CSU 18:49 → ICU 12-16 23:18 → CSU 12-19 00:08
PROVIDERS: Hospitalist; Internal Medicine Cardiovascular Disease; Admitting Provider Internal Medicine; Emergency Provider Family Medicine; Visit Provider Internal Medicine
PROC: 4A023N7 Measurement of Cardiac Sampling and Pressure, Left Heart, Percutaneous Approach (ICD-10-PCS; principal; 2020-12-16 06:00)
PROC: B240ZZ3 Ultrasonography of Single Coronary Artery, Intravascular (ICD-10-PCS; principal; 2020-12-17 14:00)
PROC: B240ZZ3 Ultrasonography of Single Coronary Artery, Intravascular (ICD-10-PCS; 2020-12-17 14:00)
DX: I21.4 Non-ST elevation (NSTEMI) myocardial infarction (principal); E78.5 Hyperlipidemia, unspecified; I10 Essential (primary) hypertension; E03.9 Hypothyroidism, unspecified; I77.6 Arteritis, unspecified; M32.19 Other organ or system involvement in systemic lupus erythematosus; Z86.16 Personal history of COVID-19; F17.200 Nicotine dependence, unspecified, uncomplicated; D50.9 Iron deficiency anemia, unspecified; K21.9 Gastro-esophageal reflux disease without esophagitis; I20.1 Angina pectoris with documented spasm; K22.4 Dyskinesia of esophagus; H53.8 Other visual disturbances; Z78.0 Asymptomatic menopausal state
CPT/HCPCS: 36415; 71045; 80048; 80053; 81025; 82533; 83735; 84439; 84443; 84484; 85025; 85347; 85651; 85730; 86140; 86160; 87426; 92978; 93005; 93306; 93452; 96372; 99285; C1753; C1769; C1887; C1894; J1644; J1650; J1885; J2250; J2930; J3010; J3490; J7030; J7050; Q0163; Q9967